=== PATIENT | female | born 1995 | race Two or more races ===

== ENCOUNTER 2022-11-25 14:17 | Outpatient (REF) | payer MEDICAID, SELFPAY ==
[2022-11-25 17:18] LABS: MANUAL DIFF FLAG NO
[2022-11-25 17:20] LABS: Basophils Percent Auto 0.5 % (0-2); Eosinophils Absolute Auto 0.5 X10*3/uL (0.0-0.4); Eosinophils Percent Auto 7.5 % (0-4); Hematocrit 35.9 % (37.0-47.0); Hemoglobin 11.3 g/dl (12.0-16.0); Imm Gran Abs Auto 0.02 X10*3/uL (0.00-0.03); Imm Gran Pct Auto 0.3 % (0.0-0.4); Lymphocytes Absolute Auto 1.9 X10*3/uL (1.2-4.9); Lymphocytes Percent Auto 28.2 % (20-40); Mean Corpuscular HGB Conc 31.5 g/dl (31.0-35.0); Mean Corpuscular Volume 76.4 fL (80.0-98.0); Mean Platelet Volume 9.9 fL (9.4-12.3); Monocytes Absolute Auto 0.5 X10*3/uL (0.1-1.2); Monocytes Percent Auto 6.9 % (2-11); Neutrophils Absolute Auto 3.8 x10*3/uL (2.0-8.3); Neutrophils Percent Auto 56.6 % (45-73); Platelet Count 285 X10*3/uL (160-400); Red Cell Distribution Width 15.4 % (11.0-16.0); White Blood Count 6.7 X10*3/uL (4.8-10.8)
[2022-11-25 17:38] LABS: Iron 37 mcg/dL (30-160); Percent Iron Saturation 11 % (15-50); Total Iron Binding Capacity 332 mcg/dL (228-428); Unsaturated Iron Binding 295 ug/dL
[2022-11-25 17:54] LABS: TSH reflex Free T4 0.89 uIU/mL (0.32-4.0)
== END 2022-11-25 14:18 | disposition home or self-care (01) ==
LOC: HO.CHCLDS 14:17
PROVIDERS: Visit Provider Pediatrics
DX: D50.0 Iron deficiency anemia secondary to blood loss (chronic) (principal)
CPT/HCPCS: 36415; 83540; 84443; 85025

== ENCOUNTER 2023-08-16 10:18 | Outpatient (REF) | payer MEDICAID, SELFPAY ==
[2023-08-16 14:42] LABS: MANUAL DIFF FLAG NO
[2023-08-16 15:02] LABS: Basophils Percent Auto 0.5 % (0-2); Eosinophils Absolute Auto 0.4 X10*3/uL (0.0-0.4); Eosinophils Percent Auto 6.9 % (0-4); Hematocrit 39.5 % (37.0-47.0); Hemoglobin 13.2 g/dl (12.0-16.0); Imm Gran Abs Auto 0.02 X10*3/uL (0.00-0.03); Imm Gran Pct Auto 0.3 % (0.0-0.4); Lymphocytes Absolute Auto 1.6 X10*3/uL (1.2-4.9); Lymphocytes Percent Auto 24.8 % (20-40); Mean Corpuscular HGB Conc 33.4 g/dl (31.0-35.0); Mean Corpuscular Hemoglobin 27.7 pg (27.0-33.0); Mean Platelet Volume 9.8 fL (9.4-12.3); Monocytes Absolute Auto 0.5 X10*3/uL (0.1-1.2); Neutrophils Absolute Auto 3.9 x10*3/uL (2.0-8.3); Neutrophils Percent Auto 60.5 % (45-73); Platelet Count 284 X10*3/uL (160-400); Red Blood Count 4.76 X10*6/uL (4.20-5.50); Red Cell Distribution Width 12.1 % (11.0-16.0); White Blood Count 6.4 X10*3/uL (4.8-10.8)
[2023-08-16 15:10] LABS: Estimated Average Glucose 94 mg/dL; Hemoglobin A1c % 4.9 % (<6.0)
[2023-08-16 15:27] LABS: Cholesterol 177 mg/dL (<200); HDL Cholesterol 45 mg/dL (>40); LDL Cholesterol Calculated 108 mg/dL (<100); Triglycerides 122 mg/dL (<150)
[2023-08-16 15:34] LABS: TSH reflex Free T4 1.52 uIU/mL (0.32-4.0); Vitamin D 25-OH Total 14.9 ng/mL (>30)
== END 2023-08-16 10:19 | disposition home or self-care (01) ==
LOC: HO.CHCLDS 10:18
PROVIDERS: Visit Provider Pediatrics
DX: Z00.00 Encounter for general adult medical examination without abnormal findings (principal); F41.9 Anxiety disorder, unspecified; D50.0 Iron deficiency anemia secondary to blood loss (chronic)
CPT/HCPCS: 36415; 80061; 82306; 83036; 84443; 85025

== ENCOUNTER 2024-09-26 15:57 | Outpatient (REF) | payer MEDICAID, SELFPAY ==
--- OUTSIDE RECORDS SUMMARY | 2024-09-26 16:01 | XMS_ITS | Clinical Summary ---
Author Organization [facility] Address [address] [place] [address] Care Team Providers Care Steel Molder Name Role Phone Unavailable Primary Care Provider Unavailabl e Source Comments PLEASE NOTE, if this patient is a minor, it may be UNLAWFUL to discuss sensitive information that is contained in these records (such as FAMILY PLANNING, MENTAL HEALTH or SUBSTANCE ABUSE) with the minor patient's parent or other person without the patient's specific authorization.[facility] Allergies Active Allergy Reactions Criticality Noted Date Comments Latex Rash Medium 12/27/2017 Medications XULANE 150-35 mcg/24 hr patch APPLY 1 PATCH TO SKIN Q WEEK 4 9 Active albuterol sulfate (PROAIR HFA) 90 mcg/actuation inhaler ProAir HFA 90 mcg/actuation aerosol inhaler Active LORazepam (ATIVAN) 0.5 mg tabletIndicatio ns:Feeling anxious Take 1 Tab by mouth as needed for anxiety 10 Tab 9 Active azithromycin (ZITHROMAX) 500 mg tabletIndicatio ns:Chlamydia Take 2 tabs PO as a single dose. Delete old prescription per pcp request 2 Tab 9 Active prenat.vits,alexia ,kcj-ekel-dmsgy ( VITAMIN) per tabletIndicatio ns:Missed period,Pregnanc y test positive ([facility]) Take 1 Tab by mouth once daily 90 Tab 3 0 Active Active Problems Problem Noted Date Diagnosed Date Asthma ([facility]) 12/27/2017 Vitiligo 12/27/2017 Abnormal Pap smear of cervix 12/27/2017 Overview (12/27/2017): Done on 09-01-17 - HSIL - plan to repeat colposcopy in 3rd trimester. Type AB blood, Rh positive 12/27/2017 Immunizations Immunization Administration Dates Next Due DTAP (Infanrix) 09/12/2001, 8,02/28/1997,12/18,1996 HEP B, PED/ADOL ([id number]-CVGH/RECOMBIVAX-PEDS) 01/09/2013,1996,1996 Hep A, Ped/adol, 2 Dose 01/09/2013,04/02/2010 Hep B, Adult/Adol ([id number]-K-GCISK/RECOMBIVAX-ADULT) 04/04/2018,03/02/2018,02/25/2012 Hep B, Unspecified 01/07/2016 Hpv, Unspecified 06/14/2008,02/13/2008, 8 INFLUENZA, SEASONAL, INJECTABLE 01/10/2014,01/05 IPV (IPOL) 09/12/2000, 7,1996,09/03 MENINGOCOCCAL MCV4, HISTORICAL 11/08/2013,2007 MMR (MMR II/Priorix) 04/04/2018,03/02/20 18,01/07/2016,02/24,09/12/2000,09/12/1997 MMRV, Live (Proquad) 04/04/2018(Deferred: Out of Stock) TDAP 12/12/2007 Varicella (Varivax), Live Vaccine 2018,03/02/2018,12/12/2007,11/10 Family History Medical History Relation Name Comments Anxiety disorder Mother Depression Mother Anxiety disorder Sister Depression Sister Relation Name Status Comments Mother Alive Sister Alive Social History Tobacco Use Types Packs/Day Years Used Date Smoking Tobacco: Never Smokeless Tobacco: Never Alcohol Use Standard Drinks/Week Comments No 0 (1 standard drink = 0.6 oz pur e alcohol) Social Connections Answer Date Recorded Connectedness 0 11/26/2023 Financial Resource Strain Answer Date R ecorded Financial Resource Strain 0 2018 Stress Answer Date Recorded Stress 0 11/13/2018 Physical Activity Answer Date Recorded Physical Activity 0 11/13/2018 Food Insecurity Answer Date Recorded Food 0 12/15/2023 Transportation Needs Answer Date Record ed Transportation 0 11/13/2018 Housing Stability Answer Date Recorded Housing 0 11/13/2018 Safety and Environment Answer Date Jeff rded Safety 0 12/27/2017 Utilities Answer Date Recorded Utilities 0 11/13/2018 Employment Answer Date Recorded Employment 0 11/13/2018 Comments No Sex and Gender Information Value Date Recorded Sex Assigned at Female 12/27/2017 6:46 AM PDT Legal Sex Female 7:10 AM PDT Gender Identity Female 12/27/2017 6:46 AM PDT Sexual Orientation Straight 12/27/2017 6: 46 AM PDT Occupation Industry Job Start Date Job End Date student Not on file Not on file Not on file Last Filed Vital Signs Vital Sign Reading Time Taken Comments Blood Pressure 110/61 09/18/2018 3:57 PM EDT Pulse 86 09/18/2018 3:57 PM EDT Temperature 36.6 C (97.9 F) 08/02/2018 2:51 PM EDT Respiratory Rate 16 09/18/2018 3:57 PM EDT Oxygen Saturation 99% 08/02/2018 2:51 PM EDT Inhaled Oxygen Concentration - - Weight 64 kg (141 lb) 09/18/2018 3:57 PM EDT Height 160 cm (5' 3 ) 12/27/2017 9:48 AM EDT Body Mass Index 24.98 12/27/2017 9:48 AM EDT Plan of Treatment Health Maintenance Due Date Last Done Comments Anxiety Screening 1996 HPV Screening 1996 Pap + HPV 1996 Tobacco Screening 1996 HIV Screening 06/18/2011 Imm-Pneumococcal (1 of 2 - PCV) 06/18/2015 Annual Wellness (Adult): Indicated (All Coverage) 12/27/2018 12/27/2017 Relationship Safety Screening/Counseling 12/27/2018 12/27/2017 Cervical Cancer Screening 04/11/2020 Pap Smear 04/11/2020 04/11/2017 Hypertension Screening (#1) 09/17/2021 [id number] ( season) 2023 Alcohol and Drug Screen 03/21/2024 12/27/2017 Depression Annual Screen 03/21/2024 12/27/2017 Imm-Influenza (#1) 2024 09/28/2017, 1 , 01/05/2013 Imm-DTaP/Tdap/Td (8 - Td or Tdap) 05/03/2027 05/03/2017, 12/12/2007, 09/12/2001, Additional history exists Hepatitis C Screening Completed 12/27/2017 Imm-Hepatitis B Completed 04/04/2018, 02/18, 01/07/2016, Additional history exists Imm-Varicella Completed 04/04/2018, 02/18, 12/12/2007, Additional history exists Cervical Ablation/Cold-Knife Conization Discontinued Cervical Cryotherapy Discontinued Colposcopy Discontinued Endometrial Biopsy Discontinued Excision/Leep Discontinued HPV Genotyping Discontinued Vaginal Pap Discontinued Vulvoscopy Discontinued Procedures Procedure Name Priority Date/Time Associated Diagnosis Comments HEPATITIS A,B,C PANEL Routine 12/27/2017 10:16 AM EDT Hepatitis B vaccination status unknown from Last 3 Months or Most Recently Relevant to Health Maintenance Results * (ABNORMAL) HEPATITIS A,B,C PANEL (12/27/2017 10:16 AM EDT) HEPATITIS B SURFACE ANTIBODY NEGATIVE NEGATIVE [facility] HEPATITIS B SURFACE ANTIGEN NEGATIVE NEGATIVE [facility] Comment: Over the counter supplements containing high doses of biotin may interfere with this assay. If interference is suspected, patients shoud be retested after refraining from biotin supplements for 72 hours. HEPATITIS C VIRUS DIAGNOSTIC NEGATIVE NEGATIVE [facility] HEPATITIS B CORE ANTIBODY NEGATIVE NEGATIVE [facility] HEPATITIS A ANTIBODY TOTAL POSITIVE(A) NEGATIVE [facility] Comment: Over the counter supplements containing high doses of biotin may interfere with this assay. If interference is suspected, patients shoud be retested after refraining from biotin supplements for 72 hours. Blood specimen (specimen) Blood / Unknown 12/27/2017 10:16 AM EDT 12/27/2017 11:52 AM EDT Narrative [facility] - 12/27/2017 2:08 PM EDT [employer] [address] [place] [address] PT ID [id number] ORD# [id number] [facility] - BLOOD DRAW Edited Result - Final Performing Organization Address City/State/[facility] Co de Phone Number [facility] [address] [place] [address], from Last 3 Months or Most Recently Relevant to Health Maintenance Insurance [id number] [facility] [facility]
--- OUTSIDE RECORDS SUMMARY | 2024-09-26 16:01 | XMS_ITS | Clinical Summary ---
Author Organization [place] [address] [address] [facility] Address [address] [place], [place] [address], [place] [address] Phone Care Team Providers Care Administrative Intern Name Role Phone Xenia Keene MD Primary Care Provider [phone] Allergies Active Allergy Reactions Criticality Noted Date Comments Latex Hives,Other,Itching, Swellin g High 01/11/2020 Trouble breathing Medications 25/iron fum/folic/dha (-1 ORAL) Take by mouth. Active acetaminophen (TYLENOL) 500 mg tablet Take 500 mg by mouth every 6 hours as needed. Active medroxyPROGESTER one 150 mg/mL injection Inject 1 mL into the muscle Every 3 Months. 12/21/2022 Active Active Problems Problem Noted Date Diagnosed Date Symptomatic anemia 06/25/2022 Overview (03/08/2024): Last Assessment & Plan: Bleeding now slowed significantly. Discussed recommendation for blood transfusion and to push PO fluids. She was counseled re: risk of transfusion including infection and other reactions, but unlikely. She will be given 1 units and if feeling better, will be monitored for 30 minutes and discharged to home with family. She will plan to start oral iron tonight. COVID-19 06/24/2020 Overview (03/08/2024): Exposure to partner who tested positive on 06/24/20 Pt is asymptomatic. Per pt she is getting tested 06/27/20 Anemia in 05/05/2020 Overview (03/08/2024): 05/05 starting iron 1xd Asthma 01/25/2020 Overview (03/08/2024): Using nebulizer a couple times a week, was using albuterol inhaler. Encounters Date Type Department Care Team Description 07/18/2024 2:15 PM EDT Office Visit Obstetrics and Gynecology - [facility] [address] [facility] [place] [address] Meggan Chang, Vaginal discharge (Primary Dx); Screen for STD (sexually transmitted disease); Bacterial vaginosis from Last 3 Months Immunizations Name Administration Dates Next Due Influenza Quadravalent, MDCK , 0.5ml, preservative free (Flucelvax) 6mo and older 02/19/2020 Tdap Tetanus diptheria acell ular pertussis (Boostrix; Adacel) 7yo and older 06/12/2020,04/17/2020 Typhoid Vaccine, Parenteral, Other Than Acetone-killed, Dried 10/01/2022,06/25/2022,09/29/2020 Surgical History Surgery Date Site/Laterality Comments OTHER SURGICAL HISTORY PROCEDURE: DENIES PREVIOUS SURGERY Medical History Medical History Date Comments History of asthma DX:History of asthma; COMMENT: asthma since childhood. has albuterol. Vitiligo DX:Vitiligo; COM MENT: all over body per pt. Anemia DX:Anemia Family History Medical History Relation Name Comments Cervical cancer Aunt maternal No Known Problems Brother paternal h halfway brother No Known Problems Father No Known Problems Maternal Grandfather Alzheimer's disease Maternal Grandmother Diabetes Maternal Grandmother Hypertension Maternal Grandmother No Known Problems Mother Breast cancer Other mat aunt pt's mother's paternal half sister No Known Problems Paternal Grandfather Diabetes Paternal Grandmother Asthma Sister 1 No Known Problems Sister 2 Asthma Sister 3 Ovarian cancer Neg Hx Uterine cancer Neg Hx Relation Name Status Comments Aunt maternal Brother Alive Father Alive Maternal Grandfather Alive Maternal Grandmother Alive Mother Alive Other mat aunt Alive Paternal Grandfather Alive Paternal Grandmother Alive Sister 1 Alive Sister 2 Alive Sister 3 Alive Social History Tobacco Use Types Packs/Day Years Used Date Smoking Tobacco: Never Smokeless Tobacco: Never Alcohol Use Standard Drinks/Week Comments Yes 0 (1 standard drink = 0.6 oz pur e alcohol) occas Comments No Sex and Gender Information Value Date Recorded Sex Assigned at Not on file Legal Sex Female 10:45 AM EST Gender Identity Not on file Sexual Orientation Not on file Obstetrics History Para Term AB IAB SAB Ectopic Multiple Livin g Live Births 5 2 2 3 2 1 2 2 Date Outcome GA Total Labor Labor/2nd/3rd Weight Sex Type Anes PTL Aide A1 A5 Name Clin SAB SAB 2017 Term 38w 1d 2827 g (99.7 oz) F Vag-Sp ont Epidur al Livin g Ravne et Colette DO Delivery Location:[facility] 0 IAB Surgic al Fco 2020 Term 39w 0d 0h 10m/0h 05m 3657 g (129 oz) M Vag-Sp ont Epidur al N Livin g 8 9 Conno r CNM Delivery Location:[facility] 2022 IAB Surgic al Fco Last Filed Vital Signs Vital Sign Reading Time Taken Comments Blood Pressure 118/70 07/18/2024 2:23 PM EDT Pulse 85 07/18/2024 2:23 PM EDT Temperature - - Respiratory Rate 18 07/18/2024 2:23 PM EDT Oxygen Saturation - - Inhaled Oxygen Concentration - - Weight 82.2 kg (181 lb 3.2 oz) 07/18/2024 2:23 P M EDT Height 157.5 cm (5' 2 ) 12/21/2022 4:24 PM EDT Body Mass Index 33.14 12/21/2022 4:24 PM EDT Plan of Treatment Health Maintenance Due Date Last Done Comments Hepatitis A Vaccines (2 of 2 - 2-dose series) 07/10/2013 01/09/2013 Pneumococcal Vaccine: Pediatrics (0 to 5 Years) and At-Risk Patients (6 to 49 Years) (1 of 2 - PCV) 06/18/2015 Social Influencers of Health Screening 02/22/2022 Cervical Cancer Screening: Pap Smear 02/18/2023 02/19/2020, 02/19/2020, 02/19/2020 COVID-19 Vaccine ( - season) 2023 Depression Screening 08/15/2024 08/16/2023 Influenza Vaccine (#1) 2024 3, 02/19/2020, 12/16/2017, Additional history exists DTaP,Tdap,and Td Vaccines (10 - Td or Tdap) 06/12/2030 06/12/2020, 04/17/2020, 12/16/2017, Additional history exists IPV Vaccines Completed 09/12/2000, 02/18, 1996, Additional history exists HPV Vaccines Completed 06/14/2008, 01/20, 12/12/2007 Meningococcal ACWY Vaccine Completed 11/08/2013, Hepatitis B Vaccines Completed 04/04/2018, 03/02/2018, 01/07/2016, Additional history exists MMR Vaccines Completed 04/04/2018, 02/18, 02/20/2018, Additional history exists Varicella Vaccines Completed 04/04/2018, 1 05/03/2017, 12/12/2007, Additional history exists HIV Screening Completed 12/21/2022 Hepatitis C Screening Completed 12/21/2022 HIB Vaccines Aged Out No longer eligi ble based on patient's age to complete this topic Meningococcal B Vaccine Aged Out No l onger eligible based on patient's age to complete this topic RSV Immunization Patients Under 20 months Aged Out No longer eligible based on patient's age to complete this topic Procedures Procedure Name Priority Date/Time Associated Diagnosis Comments TRICHOMONAS VAGINALIS ANTIGEN Routine 07/18/2024 2:44 PM EDT Screen for STD (sexually transmitted disease) Vaginal discharge CHLAMYDIA TRACHOMATIS AND NEISSERIA GONORRHOEAE PCR Routine 07/18/2024 2:44 PM EDT Screen for STD (sexually transmitted disease) Vaginal discharge HEPATITIS C SCREENING Routine 12/21/2022 HIV SCREENING Routine 12/21/2022 PAP SMEAR Routine 02/19/2020 from Last 3 Months or Most Recently Relevant to Health Maintenance Results * Trichomonas vaginalis antigen (07/18/2024 2:44 PM EDT) Trichomonas vaginalis Negative Negative 07/18/2024 8:[address] [facility] Swab Vaginal structure / Unknown Non-blood Collection / Unknown 07/18/2024 2:44 PM EDT 07/18/2024 2:44 PM EDT Meggan Charlene MILLAN LAB MICROBIOLOGY - GENERAL OR DERABLES Final Result [facility] [address] [place] [address], [place] [phone] * Chlamydia trachomatis and Neisseria gonorrhoeae molecular study (07/18/2024 2:44 PM EDT) Neisseria gonorrhoeae PCR Negative Negative LAB MOLECULAR DIAGNOSTICS METHOD 07/19/2024 2:[address] [facility] Chlamydia trachomatis PCR Negative Negative LAB MOLECULAR DIAGNOSTICS METHOD 07/19/2024 2:[address] [facility] Vaginal structure / Unknown 07/18/2024 2:44 PM EDT 07/18/2024 2:44 PM EDT Meggan Chang DO LAB MICROBIOLOGY - GENERAL OR DERABLES Final Result [facility] [address] [place] [address], [place] [phone] * HIV Screening (12/21/2022) HIV Screening abstracted us Historical Provider MD HEALTH MAINTENANCE Final Result * Hepatitis C Screening (12/21/2022) Hepatitis C Screening abstracted us Historical Provider MD HEALTH MAINTENANCE Final Result * Pap smear (02/19/2020) 02/19/2020 Narrative HISTORICAL TESTING LAB RESULTING AGENCY - 02/21/2020 1:11 PM EST [id number] THINPREP PAP, IMAGED: NEGATIVE FOR SQUAMOUS INTRAEPITHELIAL LESION AND MALIGNANCY . ANGELICA CM , JO-ANN(ASCP) (CASE ELECTRONICALLY SIGNED 02 21 2020) RESULT OF APTIMA HIGH RISK HPV ASSAY: HIGH RISK HPV: NEGATIVE (SEROTYPES 16,18,31,33,35,39,45,51,52,56,58,59,66,68) COMPLETED ON 2020-02-21 ADEQUACY: SATISFACTORY ENDOCERVICAL/TRANSFORMATION ZONE COMPONENT ABSENT. SOURCE: THINPREP PAP HPV ANY DX: REFLEX 16 AND 18, CERVICAL, IMAGED CLINICAL INFORMATION: HPV ANY DIAGNOSIS. , LMP 10/05/19 [Z12.4, Z34.81] us Cecilia Michelle [facility] CYTOLOGY ORDERABLES Ellyn conteh Result HISTORICAL TESTING LAB RESULTING AGENCY from Last 3 Months or Most Recently Relevant to Health Maintenance Insurance MEDICAID - [place] Care Teams Administrative Intern Relationship Specialty Start Date End Date Xenia Keene MD [address] [place] [address] PCP - General 01/08/20
--- OUTSIDE RECORDS SUMMARY | 2024-09-26 16:01 | XMS_ITS | Patient Health Record ---
Author Organization [facility] Address [address] [id number] Care Team Providers Care Bark Peeler Name Role Phone SHEA HENRIQUEZ Unavailable [phone] Allergies Allergen (clinical drug ingredient) Drug/Non Drug Allergy documented on EMR Reaction Allergy Type Onset Date Status Latex Latex Unknown Allergy Active Results Component Value Reference Range Notes Test, Urine Reviewed date:02/13/2024 12:19:42 PM Interpretation:Negative Performing Lab: Notes/Report: Negative Test, Urine neg Lot # [id number] Exp. Date 12/11/[address]/NG, Urine Reviewed date:02/20/2024 12:55:38 PM Interpretation:Negative Performing Lab:[facility], [facility] [employer] [place], [address] Toby Hoffman DO Notes/Report: GONORRHEA, AMPLIFIED NEGATIVE NEGATIVE CHLAMYDIA, AMPLIFIED NEGATIVE NEGATIVE DNA Test Results SEX: F : 1995 AGE: 28 [id number] CLINIC ID: [id number] SS: PHYSICIAN: SHEA HENRIQUEZ CNM COLLECTED BY: [id number] Specimen Source: Urine Specimen Type: Urine, Broderick PCR Medium Neisseria gonorrhoeae: NEGATIVE Normal Value: Negative Chlamydia trachomatis: NEGATIVE Normal Value: Negative Reason For Referral No Information Social History Sex Assigned At : Social History Observation Description Sex Assigned At Female Section Notes: Aptima/Bw Encounters Encounter Location Date Provider Diagnosis [facility] [address] [place] [id number] 02/13/2024 SHEA HENRIQUEZ Encounter for scre ening for infections with a predominantly sexual mode of transmission Z11.3 and Encounter for test, result negative Z32.02 Assessments Encounter Date Diagnosis (ICD Code) Assessment Notes Treatment Notes Treatment Clinical Notes Section Notes 02/13/2024 Encounter for screening for infections with a predominantly sexual mode of transmission (ICD-10 - Z11.3) 02/13/2024 Encounter for test, result negative (ICD-10 - Z32.02) 02/13/2024 Other Discussed options counseling, STI screening, family involvement, ectopic warnings, sexual coercion, reproductive life plan. Plan Of Treatment No Information Insurance Providers Payer Name Payer Address Payer Phone Subscriber Number Group Number Insured Name Patient Relationship to Insured Coverage Start Date Coverage End Date [place] ATT CLAIMS [address] [place] [id number] Radha Ellison Self - patient is the insured Medical (General) History Medical History History ICD Code Asthma
--- OUTSIDE RECORDS SUMMARY | 2024-09-26 16:01 | XMS_ITS | Clinical Summary ---
Author Organization [employer] Address [address] [facility] [address] [place] [address] Care Team Providers Care Planogrammer Name Role Phone Xenia Keene MD Primary Care Provider [phone] Allergies Active Allergy Reactions Criticality Noted Date Comments Latex Hives,Itching,Rash,S welling ,Shortness of breath High 12/27/2017 Trouble breathing Medications sertraline (Zoloft) 50 MG tabletIndicatio ns:Anxiety Take 1 tablet (50 mg) by mouth in the morning. 30 tablet 2 3 Active Multiple Vitamins-Minera ls (Multivitamin Gummies Womens) chewable tablet Take 1 tab orally and chew daily 90 tablet 3 3 Active medroxyPROGESTE Hood (Depo-Provera) 150 MG/ML suspension prefilled syringe injection syringe Inject 150 mg into the shoulder, thigh, or buttocks. 3 Active albuterol 108 (90 Base) MCG/ACT inhaler Inhale 2 puffs every 6 (six) hours if needed for wheezing. 18 g 2 3 Active fluticasone (Flovent) 110 MCG/ACT inhaler Inhale 1 puff in the morning and at bedtime. Rinse mouth with water after use to reduce aftertaste and incidence of candidiasis. Do not swallow. 12 g 11 3 Active sertraline (Zoloft) 50 MG tablet Take 1 tablet (50 mg) by mouth in the morning. 30 tablet 5 3 Active loratadine (Claritin) 10 MG tablet Take 1 tablet (10 mg) by mouth Once per day. 30 tablet 11 4 Active albuterol 108 (90 Base) MCG/ACT inhaler Inhale 2 puffs every 6 (six) hours if needed for wheezing. 18 g 2 4 Active ketoconazole (Nizoral) 2 % shampoo Apply topically 2 (two) times a week. 120 mL 11 4 Active clobetasol (Temovate) 0.05 % external solution Apply topically 2 times daily. 25 mL 1 4 Active ergocalciferol (Vitamin D2) 1.25 MG (59029 UT) capsule TAKE 1 TABSULE BY MOUTH ONCE A WEEK 12 capsule 4 Active Active Problems Problem Noted Date Diagnosed Date Uncontrolled mild persistent asthma 01/03/2020 Vitiligo 12/27/2017 Encounters Date Type Department Care Team Description 09/26/[address] [facility] [address] [place] [address] [phone] Xenia Keene MD TB Test from Last 3 Months Immunizations Immunization Administration Dates Next Due Influenza injectable quadriv alent IIV4 with preservative 11/25/2022 Social History Tobacco Use Types Packs/Day Years Used Date Smoking Tobacco: Never Passive Smoke Exposure: Never Smokeless Tobacco: Never Tobacco Cessation:Counseling Given: Not Answered Depression Answer Date Recorded Patient Health Questionnaire-9 Score 16 08/16/2023 Patient Health Questionnaire-9 Score 16 08/16/2023 Last PHQ-9: Questionnaire Data Not on file 0 08/16/2023 Housing Stability Answer Date Recorded What is your housing situation today? I have robert sargent 08/16/[address] you li ve. Do you have problems with any of the following? None of the above 08/16/2023 Food Insecurity Answer Date Recorded Within the past 12 months, y ou worried that your food would run out before you got money to buy more: Never True 08/16/2023 Within the past 12 months,th e food you bought just didn't last and you didn't have enough money to get more: Never True Transportation Answer Date Recorded In the past 12 months, has l ack of transportation kept you from medical appts, meetings, work or from getting things needed for daily living? No 08/16/2023 Utilities Answer Date Recorded In the past 12 months, has t he electric, gas, oil or water company threatened to shut off services in your home? No 08/16/2023 Depression Answer Date Recorded Patient Health Questionnaire-2 Score 2 08/16/2023 Comments No Sex and Gender Information Value Date Recorded Sex Assigned at Female 01/18/2022 10:37 AM EDT Legal Sex Female 10:37 AM EDT Gender Identity Female 01/18/2022 10:37 AM EDT Sexual Orientation Straight 01/18/2022 10 :37 AM EDT Last Filed Vital Signs Vital Sign Reading Time Taken Comments Blood Pressure 115/74 06/19/2024 11:53 AM EDT Pulse 70 06/19/2024 11:53 AM EDT Temperature 36.7 C (98 F) 06/19/2024 11:53 AM EDT Respiratory Rate 20 06/19/2024 11:53 AM EDT Oxygen Saturation 98% 06/19/2024 11:53 AM EDT Inhaled Oxygen Concentration - - Weight 82.1 kg (181 lb) 06/19/2024 11:53 AM EDT Height 162.6 cm (5' 4 ) 06/19/2024 11:53 AM EDT Body Mass Index 31.07 06/19/2024 11:53 AM EDT Plan of Treatment Health Maintenance Due Date Last Done Comments Disability Screening 1996 Alcohol/Substance Use Screening 2008 Family Planning (PISQ) 06/18/2011 Hepatitis C Screening 2014 Pneumococcal Vaccine: Pediatrics (0 to 5 Years) and At-Risk Patients (6 to 49) Years (1 of 2 - PCV) 06/18/2015 COVID-19 Vaccine ( season) 2023 12/19/2020, 11/26/2020 Depression Monitoring 02/16/2024 08/16/2023, 024 SDOH Screening 08/15/2024 08/16/2023 Influenza Vaccine (#1) 2024 , 02/19/2020, 01/10/2014, Additional history exists Pap Smear 02/18/2025 02/19/2020 Tobacco Screening 06/19/2025 06/19/2024 DTaP/Tdap/Td Vaccines (9 - Td or Tdap) 06/12/2030 06/12/2020, 04/17/2020, 12/12/2007, Additional history exists Zoster Vaccines (1 of 2) 2046 RSV Patients and Patients Aged 60 years or older (1 - 1-dose 75+ series) 06/18/2071 IPV Vaccines Completed 09/12/2000, 02/18, 1996, Additional history exists HPV Vaccines Completed 06/14/2008, 01/20, 12/12/2007 Hepatitis A Vaccines Completed 01/09/2013, 04/02/19 11 Meningococcal Vaccine Completed 11/08/2013, 008 Hepatitis B Vaccines Completed 04/04/2018, 03/02/2018, 01/07/2016, Additional history exists HIV Screening Completed 12/21/2022 HIB Vaccines Aged Out No longer eligi ble based on patient's age to complete this topic Meningococcal B Vaccine Aged Out No l onger eligible based on patient's age to complete this topic RSV under 20 months Aged Out No longe r eligible based on patient's age to complete this topic Rotavirus Vaccines Aged Out No longer eligible based on patient's age to complete this topic Procedures Procedure Name Priority Date/Time Associated Diagnosis Comments PAP/HPV Routine 02/19/2020 from Last 3 Months or Most Recently Relevant to Health Maintenance Results * Pap Smear (02/19/2020) Pap Negative for intraephithelial lesion or malignancy Negative for intraephithelial lesion or malignancy, Other HPV Not Detected Undetected, Indeterminate, Quantitative, Not Detected [facility] Provider HEALTH MAINTENANCE Final Result from Last 3 Months or Most Recently Relevant to Health Maintenance Insurance * Guarantor: Radha Ellison Account Type Relation to Patient Date of Phone Billing Address Personal/Family Self [address] [place] [address] [facility] Care Teams Planogrammer Relationship Specialty Start Date End Date Xenia Keene MD [address] [place] [phone] PCP - General Family Medicine 01/02/20 Sully Grant Cooling Pipe InspectorRestuarant Crew Worker 06/15/23
[2024-09-29 04:24] LABS: TS Negative Control Passed; TS Panel A 2; TS Panel B 1; TS Positive Control Passed; TSpotTB Negative (Negative)
== END 2024-09-26 15:58 | disposition home or self-care (01) ==
LOC: HO.CHCLDS 15:57
PROVIDERS: Visit Provider Pediatrics
DX: Z11.7 Encounter for testing for latent tuberculosis infection (principal); Z13.9 Encounter for screening, unspecified
CPT/HCPCS: 36415; 86481

== ENCOUNTER 2025-01-25 12:40 | Outpatient (REF) | payer MEDICAID, SELFPAY ==
--- OUTSIDE RECORDS SUMMARY | 2025-01-25 10:00 | XMS_ITS | Encounter Summary ---
Demographics Address [address] [place] [address] Work Phone Home Phone Mobile Phone Email Address Preferred Language en Marital Status Single Faith Affiliation Unknown Race Other Race Ethnic Group Unknown Author Organization [employer] Address [address] [facility] [address] [place] [address] Care Team Providers Care Draw Bench Operator Name Role Phone Xenia Keene MD Primary Care Provider [phone] Encounter Details Date Type Department Care Team ([facility] st Contact Info) Description 01/25/2025 10:00 AM EST Office Visit [facility] [address] [place] [address], [place] [phone] Xenia Keene MD [address] [place] [address] Vitiligo (Primary Dx); Encounter for immunization; Dietary counseling; Exercise counseling; Uncontrolled mild persistent asthma; Routine general medical examination at a health care facility Social History Tobacco Use Types Packs/Day Years Used Date Smoking Tobacco: Never Passive Smoke Exposure: Never Smokeless Tobacco: Never Depression Answer Date Recorded Patient Health Questionnaire-9 Score 11 01/25/2025 Patient Health Questionnaire-9 Score 11 01/25/2025 Last PHQ-9: Questionnaire Data Not on file 1 03/27/2024 Housing Stability Answer Date Recorded What is your housing situation today? I have robertneri sargent 01/25/[address] you li ve. Do you have problems with any of the following? None of the above 01/25/2025 Food Insecurity Answer Date Recorded Within the past 12 months, y ou worried that your food would run out before you got money to buy more: Never True 01/25/2025 Within the past 12 months,th e food you bought just didn't last and you didn't have enough money to get more: Never True 09/2024 Transportation Answer Date Recorded In the past 12 months, has l ack of transportation kept you from medical appts, meetings, work or from getting things needed for daily living? No 01/25/2025 Utilities Answer Date Recorded In the past 12 months, has t he electric, gas, oil or water company threatened to shut off services in your home? Yes 01/25/2025 Depression Answer Date Recorded Patient Health Questionnaire-2 Score 1 01/25/2025 Internet Access Answer Date Recorded Internet Access Q1 Yes 01/25/2025 Internet Access Q2 Not on file 01/25/2025 Comments No Sex and Gender Information Value Date Recorded Sex Assigned at Female 01/18/2022 10:37 AM EDT Legal Sex Female 10:37 AM EDT Gender Identity Female 01/18/2022 10:37 AM EDT Sexual Orientation Straight 01/18/2022 10 :37 AM EDT documented as of this encounter Last Filed Vital Signs Vital Sign Reading Time Taken Comments Blood Pressure 112/62 01/25/2025 10:12 AM EST Pulse 88 01/25/2025 10:12 AM EST Temperature 36.8 C (98.2 F) 01/25/2025 10:12 AM EST Respiratory Rate 20 01/25/2025 10:12 AM EST Oxygen Saturation - - Inhaled Oxygen Concentration - - Weight 76.7 kg (169 lb) 01/25/2025 10:12 AM EST Height 162.6 cm (5' 4 ) 01/25/2025 10:12 AM EST Body Mass Index 29.01 01/25/2025 10:12 AM EST documented in this encounter Functional Status * Over the past 2 weeks, how often have you been bothered by any of the following problems? Question Answer Date of Assessment Author Patient Health Questionnaire -2 Score 1 01/25/2025 10:15 AM EST Lupis Reese MA * Little interest or pleasure in doing things Answer Date of Assessment Author Several days 01/25/2025 10:15 AM EST Nancy Prince MA * Feeling down, depressed, or hopeless Answer Date of Assessment Author Not at all 01/25/2025 10:15 AM EST Nancy Prince MA * Trouble falling or staying asleep, or sleeping too much Answer Date of Assessment Author More than half the days 01/25/2025 10:15 AM Nancy Nieto MA * Feeling tired or having little energy Answer Date of Assessment Author Several days 01/25/2025 10:15 AM Nancy Dick MA * Poor appetite or overeating Answer Date of Assessment Author Several days 01/25/2025 10:15 AM Nancy Dick MA * Feeling bad about yourself - or that you are a failure or have let yourself or your family down Answer Date of Assessment Author Not at all 01/25/2025 10:15 AM Nancy Dick MA * Trouble concentrating on things, such as reading the newspaper or watching television Answer Date of Assessment Author Nearly every day 01/25/2025 10:15 AM Nancy Kraus MA * Moving or speaking so slowly that other people could have noticed? Or the opposite - being so fidgety or restless that you have been moving around a lot more than usual. Answer Date of Assessment Author Nearly every day 01/25/2025 10:15 AM Nancy Kraus MA * Thoughts that you would be better off or hurting yourself in some way Answer Date of Assessment Author Not at all 01/25/2025 10:15 AM Nancy Dick MA * Patient Health Questionnaire-9 Score Answer Date of Assessment Author 11 01/25/2025 10:15 AM Nancy Dick MA * Over the last 2 weeks, how often have you been bothered by any of the following problems? Question Answer Date of Assessment Author Feeling nervous, anxious, or on edge 1 01/25/2025 10:15 AM Lupis Nieto MA Not being able to stop or control worrying 1 01/25/2025 10:15 AM Lupis Neito MA Worrying too much about different things 2 01/25/2025 10:15 AM Lpuis Nieto MA Trouble relaxing 0 01/25/2025 10:15 AM Nancy Nieto MA Being so restless that it is hard to sit still 2 01/25/2025 10:15 AM Lupis Nieto MA Becoming easily annoyed or irritable 2 01/25/2025 10:15 AM Lupis Nieto MA Feeling afraid as if somethi ng awful might happen 2 01/25/2025 10:15 AM Lupis Nieto MA JUSTO-7 Total Score 10 01/25/2025 10:15 AM Nancy Nieto MA documented as of this encounter Plan of Treatment Scheduled Orders Name Type Priority Associated Diagnoses Order Schedule Pap Smear Pathology and Cytology Routine Routine general medical examination at a health care facility Ordered: 01/25/2025 Chlamydia/N. Gonorrhoeae RNA, TMA, Vaginal Microbiology Routine Routine general medical examination at a health care facility Ordered: 01/25/2025 Vitamin B12/Folate, Serum Panel Lab Routine Encounter for immunization Dietary counseling Exercise counseling Uncontrolled mild persistent asthma Vitiligo Routine general medical examination at a health care facility Expected: 01/25/2025, Expires: 01/25/2026 Vitamin D, 25-Hydroxy, Total, Immunoassay Lab Routine Encounter for immunization Dietary counseling Exercise counseling Uncontrolled mild persistent asthma Vitiligo Routine general medical examination at a health care facility Expected: 01/25/2025 (Approximate), Expires: 01/25/2026 Hepatic Function Panel Lab Routine Encounter for immunization Dietary counseling Exercise counseling Uncontrolled mild persistent asthma Vitiligo Routine general medical examination at a health care facility Expected: 01/25/2025 (Approximate), Expires: 01/25/2026 TSH W/Reflex to FT4 Lab Routine Encounter for immunization Dietary counseling Exercise counseling Uncontrolled mild persistent asthma Vitiligo Routine general medical examination at a health care facility Expected: 01/25/2025 (Approximate), Expires: 01/25/2026 HIV-1/2 Antigen and Antibodies, Fourth Generation, with Reflexes Lab Routine Encounter for immunization Dietary counseling Exercise counseling Uncontrolled mild persistent asthma Vitiligo Routine general medical examination at a health care facility Expected: 01/25/2025 (Approximate), Expires: 01/25/2026 Hepatitis C Antibody with Reflex to HCV, RNA, Quantitative, Real-Time PCR Lab Routine Encounter for immunization Dietary counseling Exercise counseling Uncontrolled mild persistent asthma Vitiligo Routine general medical examination at a health care facility Expected: 01/25/2025, Expires: 01/25/2026 Basic Metabolic Panel Lab Routine Encounter for immunization Dietary counseling Exercise counseling Uncontrolled mild persistent asthma Vitiligo Routine general medical examination at a health care facility Expected: 01/25/2025 (Approximate), Expires: 01/25/2026 CBC auto differential Lab Routine Encounter for immunization Dietary counseling Exercise counseling Uncontrolled mild persistent asthma Vitiligo Routine general medical examination at a health care facility Expected: 01/25/2025 (Approximate), Expires: 01/25/2026 documented as of this encounter Visit Diagnoses Diagnosis Vitiligo- Primary Encounter for immunization Dietary counseling Dietary surveillance and counseling Exercise counseling Uncontrolled mild persistent asthma Routine general medical examination at a health care facility documented in this encounter Additional Health Concerns Assessment Noted Time PHQ-9 Depression Total Score: 11 025 10:15 AM EST documented as of this encounter Care Teams Draw Bench Operator Relationship Specialty Start Date End Date Xenia Keene MD [address] [place] [id number] PCP - General Family Medicine 01/02/20 Sully Grant Helmet Hat Brim CutterLens Inspector 06/15/23 documented as of this encounter
--- OUTSIDE RECORDS SUMMARY | 2025-01-25 14:51 | XMS_ITS | Clinical Summary ---
Demographics Address [address] [facility] [address] [place] [address] Work Phone Home Phone Mobile Phone Email Address Preferred Language en Marital Status Single Protestant Affiliation Unknown Race Other Race Ethnic Group Unknown Author Organization [employer] Address [address] [facility] [address] [place] [address] Care Team Providers Care Business Analytics Manager Name Role Phone Xenia Keene MD Primary Care Provider Allergies Active Allergy Reactions Criticality Noted Date Comments Latex Hives,Itching,Rash,S welling ,Shortness of breath High 12/27/2017 Trouble breathing Medications Multiple Vitamins-Minera ls (Multivitamin Gummies Womens) chewable [...] for wheezing. 18 g 2 4 Active clobetasol (Temovate) 0.05 % external solution Apply topically 2 times daily. 25 mL 1 4 Active ergocalciferol (Vitamin D2) 1.25 MG (37721 UT) capsule TAKE 1 TABSULE BY MOUTH ONCE A WEEK 12 capsule 4 Active ketoconazole (NIZOral) 2 % shampoo APPLY TOPICALLY 2 TIMES A WEEK 120 mL 11 5 Active Active Problems Problem Noted Date Diagnosed Date Uncontrolled mild persistent asthma 01/03/2020 Vitiligo 12/27/2017 Encounters Date Type Department Care Team Description 01/25/2025 10:00 AM EST Office Visit [facility] [address] [place] [address] Xenia Keene MD Vitiligo (Primary Dx); Encounter for immunization; Dietary counseling; Exercise counseling; Uncontrolled mild persistent asthma; Routine general medical examination at a health care facility 01/25/2025 Travel 01/22/2025 Telephone [facility] [address] [place] [address] Xenia Keene MD Chart Prep 12/11/2024 Refill [facility] [address] [place] [address] Xenia Keene MD 11/30/2024 9:20 AM EDT Office Visit [facility] [address] [place] [address] [phone] Name, MD Yfn Right ear pain (Primary Dx) 11/30/2024 Travel from Last 3 Months Immunizations Immunization Administration Dates Next Due DTaP 09/12/2001, 8,02/28/1997,12/18,1996 HPV, Unspecified 06/14/2008,02/13/2008, 8 Hep A, ped/adol, 2 dose 01/09/2013,04/02/2010 Hep B, Adolescent or Pediatric 01/09/2013,1996,1996 Hep B, Unspecified 01/07/2016,02/25/2012 Hep B, adult 04/04/2018,03/02/2018,02/25/2012 IPV 09/12/2000, 7,1996,09/03 Influenza Injectable Quadriv alant Preservative Free IIV4 MDCK 02/19/2020 Influenza injectable quadriv alent IIV4 with preservative 11/25/2022 Influenza, IIV3, injectable 01/10/2014, 3 Influenza, seasonal, injecta ble, preservative free 01/25/2025 MMR 04/04/2018, 8,01/07/2016,02/24,09/12/2000,09/12/1997 Meningococcal MCV4, Unspecified 11/08/2013,12/11 PPD Test 06/22/2017 Tdap 06/12/2020,04/17/2020,12/12/2007 Typhoid, Parenteral 10/01/2022,06/25/2022,2020 Varicella 04/04/2018, 8,12/12/2007,11/10 Social History Tobacco Use Types Packs/Day Years [...] 20 01/25/2025 10:12 AM EST Oxygen Saturation 97% 11/30/2024 9:35 AM EDT Inhaled Oxygen Concentration - - Weight 76.7 kg (169 lb) 01/25/2025 10:12 AM EST Height 162.6 cm (5' 4 ) 01/25/2025 10:12 AM EST Body Mass Index 29.01 01/25/2025 10:12 AM EST Plan of Treatment Health Maintenance Due Date Last Done Comments Disability Screening 1996 Family Planning (PISQ) 06/18/2011 Hepatitis C Screening 2014 Pneumococcal Vaccine: Pediatrics (0 to 5 Years) and At-Risk Patients (6 to 49) Years (1 of 2 - PCV) 06/18/2015 COVID-19 Vaccine (3 - season) 2024 12/19/2020, 11/26/2020 Pap Smear 02/18/2025 02/19/2020 Depression Monitoring 07/25/2025 01/25/2025, 025 Alcohol/Substance Use Screening 01/25/2026 01/25/2025 SDOH Screening 01/25/2026 01/25/2025 Tobacco Screening 01/25/2026 01/25/2025 DTaP/Tdap/Td Vaccines (9 - Td or Tdap) [...] Additional history exists HIV Screening Completed 12/21/2022 Influenza Vaccine Completed 01/25/2025, , 11/25/2022, Additional history exists HIB Vaccines Aged Out No longer eligi [...] Not Detected Undetected, Indeterminate, Quantitative, Not Detected Historical Provider MD HEALTH MAINTENANCE Final Result from Last 3 Months or Most Recently Relevant to Health Maintenance Insurance * Guarantor: Radha Ellison Account Type Relation to Patient Date of Phone Billing Address Personal/Family Self [address] [facility] [place] [address] [place] [address] Care Teams Business Analytics Manager Relationship Specialty Start Date End Date Xenia Keene MD [address] [place] [phone] PCP - General Family Medicine 01/02/20 Sully Grant Base Ply HandVice President Integrated 06/15/23
--- OUTSIDE RECORDS SUMMARY | 2025-01-25 14:51 | XMS_ITS | Clinical Summary ---
Author Organization [facility] Address [address] [place] [address] Care Team Providers Care Exploration Engineer Name Role Phone WillowXenia pollack Primary Care Provider Unavailab le Allergies Active Allergy Reactions Severity Noted Date Comments Latex Hives/Urticaria,Rash /Dermatiti s,Itching/Pruritus,Swelling/Ed farideh High 01/11/2020 Trouble breathing Medications Medication Sig Dispensed Refills Start Date End Date Status MV-Min-Fe Fum-FA-DHA ( 1 OR) Take by mouth. 0 Active acetaminophen (TYLENOL) 500 MG tablet Take 500 mg by mouth every 6 hours as needed. 0 Active ferrous gluconate (FERGON) 324 (38 Fe) MG tablet Take 1 Tablet by mouth daily (with breakfast) for 360 days. 30 Tablet 11 06/25/2022 Active medroxyPROGESTERone (Depo-Provera) 150 MG/ML injectionIndications:En counter for surveillance of other contraceptive Inject 1 mL into the muscle Every 3 Months. 1 mL 1 12/21/2022 Active Active Problems Problem Noted Date Symptomatic anemia 06/25/2022 Last Assessment & Plan: Bleeding now slowed [...] to start oral iron tonight. COVID-19 06/24/2020 Overview: Exposure to partner who tested positive on 06/24/20 Pt is asymptomatic. Per pt she is getting tested 06/27/20 Anemia in 05/05/2020 Overview: 2/15 starting iron 1xd Asthma 01/25/2020 Overview: Using nebulizer a couple times a week, was using albuterol inhaler. Latex allergy 01/25/2020 Overview: Systemic Resolved Problems Problem Noted Date Resolved Date Supervision of other normal 01/25/2020 08/15/2020 Overview: 1. [facility] site: [address] 2. Delivery site: [facility] 3. Dating criteria: LMP confirmed by 1st trimester ultrasound 3. Blood type: AB+ 4. Genetic screening: Date: Result: 5. GBS: Date: 06/10 neg at [facility] triage 6. FOB name: Andrew Mae 7. Plans A. Epidural or other pain management - B. Labor support identified - C. Tdap - Date:, Flu - Date: D. Breast or Bottle feed: both breast and bottle E. Baby's name -Mariano (boy) F. Circumcision - yes 8. Hospital Course: admitted with SROM, progressed to with pitocin, Covid + on 07/04, well Zika assessment screening: negative Low-lying placenta - RESOLVED 01/17/2020 Overview: 02/27/2020- Normal anatomy scan. Posterior placenta. Immunizations Name Administration Dates Next Due Influenza Vaccine-preservati ve Free-quadrivalent 4 Years 02/19/2020 Tdap 06/12/2020,04/17/2020 Family History Medical History Relation Name Comments Cervical Cancer Aunt maternal No Known Problems Brother paternal h ruy brother No Known Problems Father No Known Problems Maternal Grandfather Alzheimers Disease Maternal Grandmother Diabetes Maternal Grandmother Hypertension Maternal Grandmother No Known Problems Mother CA Breast Other mat aunt pt's mother's p aternal half sister No Known Problems Paternal Grandfather Diabetes Paternal Grandmother Asthma Sister 1 No Known Problems Sister 2 Asthma Sister 3 CA Ovarian Negative Hx Uterine Cancer Negative Hx Relation Name Status Comments Aunt maternal Brother Alive Father Alive Maternal Grandfather Alive Maternal Grandmother Alive Mother Alive Other mat aunt Alive Paternal Grandfather Alive Paternal Grandmother Alive Sister 1 Alive Sister 2 Alive Sister 3 Alive Social History Tobacco Use Types Packs/Day Years Used Date Smoking Tobacco: Never Smokeless Tobacco: Never Tobacco Cessation:Counseling Given: Not Answered Alcohol Use Standard Drinks/Week Comments No 0 (1 standard drink = 0.6 oz pur e alcohol) rarely Alcohol Habits Answer Date Recorded How often do you have a drink containing alcohol ? Never 01/11/2020 How many drinks containing a lcohol do you have on a typical day when you are drinking? Not asked How often do you have six or more drinks on one occasion? Not asked Sex Assigned at Date Recorded Not on file Last Filed Vital Signs Vital Sign Reading Time Taken Comments Blood Pressure 118/66 12/21/2022 4:24 PM EDT Pulse 110 12/21/2022 4:24 PM EDT Temperature 36.9 C (98.4 F) 04/17/2020 10:05 AM EST Respiratory Rate 16 12/21/2022 4:24 PM EDT Oxygen Saturation - - Inhaled Oxygen Concentration - - Weight 75.3 kg (166 lb) 12/21/2022 4:24 PM EDT Height 157.5 cm (5' 2 ) 12/21/2022 4:24 PM EDT Body Mass Index 30.36 12/21/2022 4:24 PM EDT Plan of Treatment Health Maintenance Due Date Last Done Comments Covid-19 Vaccine (#1) 1996 BASELINE HEALTH EXAM 18-39 06/18/2015 PNEUMOCOCCAL VACCINE FOR HIG H RISK PATIENTS (#1) 06/18/2015 CHOLESTEROL SCREENING 2016 CERVICAL CANCER SCREENING 02/18/2023 02/19/2020 BMI CHECK/ADVISE 03/21/2024 06/25/2022, 02/19/2020 INFLUENZA (#1) 2024 02/19/2020 DTAP/TDAP/TD (9 - Td or Tdap) 06/12/2030, 04/17/2020, 12/12/2007, Additional history exists Care Teams Exploration Engineer Relationship Specialty Start Date End Date Xenia Keene PCP - General Family Practice 01/08/20
--- OUTSIDE RECORDS SUMMARY | 2025-01-25 14:51 | XMS_ITS | Encounter Summary ---
Author Organization [facility] Address [address] [place] [address] Care Team Providers Care Vp Medical Name Role Phone [facility], Pcp Primary Care Provider Xenia Urena Primary Care Provider Patricia clifford Encounter Details Date Type Department Care Team Description 01/03/2020 Intermediate Card Tender Report Medical Records [address] [place] [id number] Xenia Keene Social History Tobacco Use Types Packs/Day Years Used Date Smoking Tobacco: Never Assessed Alcohol Habits Answer Date Recorded How often do you have a drink containing alcohol ? Never 01/11/2020 How many drinks containing a lcohol do you have on a typical day when you are drinking? Not asked How often do you have six or more drinks on one occasion? Not asked Sex Assigned at Date Recorded Not on file documented as of this encounter Plan of Treatment Not on file documented as of this encounter Visit Diagnoses Not on filedocumented in this encounter Care Teams Vp Medical Relationship Specialty Start Date End Date [facility], Pcp PCP - General Internal Medicine 12/26/19 01/07/20 Xenia Keene PCP - General Family Practice 01/08/20 documented as of this encounter
--- OUTSIDE RECORDS SUMMARY | 2025-01-25 14:51 | XMS_ITS | Encounter Summary ---
Demographics Address [address] [place] [address] Work Phone Home Phone Mobile Phone Email Address [employer] Preferred Language en Marital Status Single Temple Affiliation Unknown Race Other Race Ethnic Group Unknown Author Organization [employer] Address [address] [facility] [address] [place] [address] Care Team Providers Care Marine Electrician Helper Name Role Phone Xenia Keene MD Primary Care Provider [phone] Encounter Details Date Type Department Care Team (Late st Contact Info) Description 09/07/2022 Abstract [employer] [facility] [address], [place] [id number] Xenia Keene MD [address] [place] [address] Social History Tobacco Use Types Packs/Day Years Used Date Smoking Tobacco: Never Passive Smoke Exposure: Never Smokeless Tobacco: Never Comments Unknown Sex and Gender Information Value Date Recorded Sex Assigned at Female 01/18/2022 10:37 AM EDT Legal Sex Female 10:37 AM EDT Gender Identity Female 01/18/2022 10:37 AM EDT Sexual Orientation Straight 01/18/2022 10 :37 AM EDT documented as of this encounter Plan of Treatment Not on file documented as of this encounter Visit Diagnoses Not on filedocumented in this encounter Additional Health Concerns Assessment Noted Time PHQ-9 Depression Total Score: 10 023 2:48 PM EST documented as of this encounter Care Teams Marine Electrician Helper Relationship Specialty Start Date End Date Xenia Keene MD [address] [place] [address] PCP - General Family Medicine 01/02/20 Sully Grant Toy AssemblerStreet Inspector 06/15/23 documented as of this encounter
--- OUTSIDE RECORDS SUMMARY | 2025-01-25 14:51 | XMS_ITS | Clinical Summary ---
Author Organization [facility] Address [address] [place] [address] Care Team Providers Care Book Sewer Name Role Phone Unavailable Primary Care Provider [...] pcp request 2 Tab 9 Active prenat.vits,alexia ,evs-ning-drdov ( VITAMIN) per tabletIndicatio ns:Missed period,Pregnanc y test positive Take 1 Tab by mouth once daily 90 Tab 3 0 Active Active Problems Problem Noted Date Diagnosed Date Asthma 12/27/2017 Vitiligo 12/27/2017 Abnormal Pap smear of cervix 12/27/2017 Overview (12/27/2017): Done on 09-01-17 - HSIL - plan to repeat colposcopy in 3rd trimester. Type AB blood, Rh positive 12/27/2017 Immunizations Immunization Administration Dates Next Due DTAP (Infanrix) 09/12/2001, 8,02/28/1997,12/18,1996 HEP B, PED/ADOL ([id number]/RECOMBIVAX-PEDS) 01/09/2013,1996,1996 Hep A, Ped/adol, 2 Dose 01/09/2013,04/02/2010 Hep B, Adult/Adol ([id number]-J-FSPUP/RECOMBIVAX-ADULT) 04/04/2018,03/02/2018,02/25/2012 Hep B, Unspecified 01/07/2016 Hpv, Unspecified [...] 12/27/2017 9:48 AM EDT Plan of Treatment Not on file Insurance C3 [facility] [employer] Member Subscriber Plan / Payer ( fective 2023-Present) Name:Radha Ellison Relation to Subscriber:Self Name:Radha Ellison Payer ID:[id number] Group ID:Not on file Type:Managed Medicaid Address: [place] [id number] [employer] Member Subscriber Plan / Payer (Ef fective 2023-Present) Name:Radha Ellison Relation to Subscriber:Self Name:Radha Ellison Payer ID:[id number] Group ID:Not on file Type:Managed Medicaid Address: [place] [id number]
--- OUTSIDE RECORDS SUMMARY | 2025-01-25 14:51 | XMS_ITS | Encounter Summary ---
Demographics Address [address] [place] [address] Work Phone Home Phone Mobile Phone Email Address Preferred Language en Marital Status Single Jain Affiliation Unknown Race Other Race Ethnic Group Unknown Author Organization [employer] Address [address] [place] [address] Care Team Providers Care Peanut Butter Maker Name Role Phone Xenia Keene MD Primary Care Provider [phone] Encounter Details Date Type Department Care Team (Latest Contact Info) Description 01/25/2025 Travel Social History Tobacco Use Types Packs/Day Years [...] AM EDT documented as of this encounter Functional Status * Over the past 2 weeks, how often have you been bothered by any of the following problems? Question Answer Date of Assessment Author Patient Health Questionnaire -2 Score 1 01/25/2025 10:15 AM Lupis Nieto [place] * Little interest or pleasure in [...] documented as of this encounter Care Teams Peanut Butter Maker Relationship Specialty Start Date End Date Xenia Keene MD [address] [facility] [place] [address] PCP - General Family Medicine 01/02/20 Sully Grant Vat CleanerFloral Arranger 06/15/23 documented as of this encounter
--- OUTSIDE RECORDS SUMMARY | 2025-01-25 14:51 | XMS_ITS | Encounter Summary ---
Demographics Address [address] [place] [address] Work Phone Home Phone Mobile Phone Email Address Preferred Language en Marital Status Single Sikhism Affiliation Unknown Race Other Race Ethnic Group Unknown Author Organization [employer] Address [address] [facility] [address] [place] [address] Care Team Providers Care Wet Milling Wheel Operator Name Role Phone Xenia Keene MD Primary Care Provider [phone] Reason for Visit * Reason Onset Date Comments Chart Prep 01/22/2025 Encounter Details Date Type Department Care Team (Late st Contact Info) Description 01/22/2025 Telephone [facility] [address] [place] [address] Xenia Keene MD [address] [place] [address] Chart Prep Social History Tobacco Use Types Packs/Day Years [...] AM EDT documented as of this encounter Miscellaneous Notes * Telephone Encounter - Nancy Reese [place] - 01/22/2025 4:20 PM EST Chart Prep Labs: not applicable Images: not applicable Referrals: complete Vaccines due: Covid, Flu, and PCV20 Screenings: pap smear, LMP, and PISQ Overdue care gaps: SBIRT, SDOH, PHQ-9, Oral health screening, Disability screen, and Tobacco documented in this encounter Plan of Treatment Not on file documented as of this encounter Visit Diagnoses Not on filedocumented in this encounter Additional Health Concerns Assessment Noted Time PHQ-9 Depression Total Score: 16 024 9:48 AM EDT documented as of this encounter Care Teams Wet Milling Wheel Operator Relationship Specialty Start Date End Date Xenia Keene MD [address] [place] [address] [place] [address] PCP - General Family Medicine 01/02/20 Sully Grant Metal SmelterHealthcare Manager 06/15/23 documented as of this encounter
--- OUTSIDE RECORDS SUMMARY | 2025-01-25 14:51 | XMS_ITS | Patient Health Record ---
Author Organization [facility] Address [address] [place] [address] Care Team Providers Care Steelworker Name Role Phone SHEA HENRIQUEZ Unavailable [phone] Allergies Allergen (clinical drug ingredient) Drug/Non Drug Allergy documented on EMR Reaction Allergy Type Onset Date Status Latex Latex Unknown Allergy Active Results Component Value Reference Range Flag Notes APTIMA COMBO 2 CT/NG, Urine Reviewed date:02/20/2024 12:55:38 PM Interpretation:Negative Performing Lab:[facility], [facility], [place], [address] Toby Hoffman DO Notes/Report: GONORRHEA, AMPLIFIED NEGATIVE NEGATIVE N CHLAMYDIA, AMPLIFIED NEGATIVE NEGATIVE N DNA Test Results SEX: F : 1995 AGE: 28 [id number] CLINIC ID: [id number] SS: PHYSICIAN: SHEA HENRIQUEZ [facility] COLLECTED BY: [id number] Specimen Source: Urine Specimen Type: Urine, Broderick PCR Medium Neisseria gonorrhoeae: NEGATIVE Normal Value: Negative Chlamydia trachomatis: NEGATIVE Normal Value: Negative Test, Urine Reviewed date:02/13/2024 12:19:42 PM Interpretation:Negative Performing Lab: Notes/Report: Negative Test, Urine neg Lot # [id number] Exp. Date 12/11/2024 Reason For Referral No Information Social History Sex Assigned At : Social History Observation Description Sex Assigned At Female Social History HIV Risk Assessment Social Info Question Answer Notes Additional Questions Is an HIV Risk Asse ssment being conducted? No Reproductive Life Plan: Social Info Question Answer Notes Reproductive Life Plan: Do you want to h ave children? Not sure Human Trafficking: Social Info Question Answer Notes Human Trafficking Experienced: No PrEP for HIV: Social Info Question Answer Notes PrEP for HIV Is the client intere sted in beginning/continuing PrEP for HIV? No Sexual History: Social Info Question Answer Notes Sexual History: Sexual History Reviewed: Partner s, Practices, Protection/Past STIs, Prevention of Currently sexually active? Yes Sexually active with: Men Number of male partners 1 Your sexual activities include: anal intercourse, oral intercourse, vaginal intercourse Reviewed types of EC? No Do you use condoms? No Date of last unprotected intercourse: 02/09/2024 Number of partners in past 3 months: 3 Number of partners in past year: 4 What is the client's primary method to prevent at the end of their visit? Withdrawal Does your partner(s) currently have any STIs? unsure Counseling Provided: Social Info Question Answer Notes Counseling Provided Please indicate the length of time, in minutes, that counseling was provided. 7 Counseling Was Provided By: eh Drugs/Alcohol: Social Info Question Answer Notes Drug/Alcohol Use Do you or have you used drugs? Yes, i n the past When you used, by which route did you take drugs? Smoking Which drug(s) did you smoke? Marijuana Do you or have you used alcohol? Yes, currently occasional use Food Access: Social Info Question Answer Notes Food Access The Client's current access to food is Secure Food Access Relationships: Social Info Question Answer Notes Relationships Has the client exper ienced any of the following: Client has never experienced harmful relationships Housing Social Info Question Answer Notes Housing The client's current living situation is: stable housing Tobacco Use: Social Info Question Answer Notes Tobacco Use: Do you/have you used tobacco? No Tobacco Smoking Status Former smoker Section Notes: Aptima/Bw Encounters Encounter Location Date Provider Diagnosis [address] [phone] 02/13/2024 SHEA HENRIQUEZ Encounter for scre ening [...] Insured Coverage Start Date Coverage End Date [place] ATT CLAIMS [address] [place] [id number] Radha Ellison Self - patient is the insured Medical (General) History Medical History History ICD Code Asthma
--- OUTSIDE RECORDS SUMMARY | 2025-01-25 14:51 | XMS_ITS | Encounter Summary ---
Author Organization [facility] Address [address] [place] [address] Care Team Providers Care Insurance Licensing Supervisor Name Role Phone Xenia Keene Primary Care Provider Unavailab le Reason for Visit * Reason Onset Date Comments Letter 02/01/2020 Encounter Details Date Type Department Care Team Description 02/01/2020 Telephone OBGYN - [address] [address] Kassy Capone CNM Letter Social History Tobacco Use Types Packs/Day Years [...] Assigned at Date Recorded Not on file COVID-19 Exposure Response Date Recorded In the last month, have you been in contact with someone who was confirmed or suspected to have Coronavirus / COVID-19? No / Unsure 01/25/2020 12:00 PM EST documented as of this encounter Miscellaneous Notes * Telephone Encounter - Dayan Velasco - 02/01/2020 4:22 PM EST Lm for patient - letter ready * Telephone Encounter - Laura Flores R.N. - 02/01/2020 4:07 PM EST Letter given. Please tell pt it is ready for pickup. * Telephone Encounter - Dayan Velasco - 02/01/2020 3:46 PM EST Chief Complaint/problem: Patient would like to pickers material handlers a signed letter stating she is - for transitional assistance - she said it needs to be signed by doctor How long has the patient had this problem? - Pt???s PENS AND PENCILS REPAIRER provider: Kassy Capone CNM Last menstrual period (LMP) or EDC (due date): N/A documented in this encounter Plan of Treatment Not on file documented as of this encounter Visit Diagnoses Not on filedocumented in this encounter Care Teams Insurance Licensing Supervisor Relationship Specialty Start Date End Date Xenia Keene PCP - General Family Practice 01/08/20 documented as of this encounter
[2025-01-25 16:05] LABS: CT PCR NOT DETECTED (Not Detect.); NG PCR NOT DETECTED (Not Detect.)
== END 2025-01-25 12:41 | disposition home or self-care (01) ==
LOC: HO.CHCLNP 12:40
PROVIDERS: Visit Provider Pediatrics
DX: Z00.00 Encounter for general adult medical examination without abnormal findings (principal); Z20.2 Contact with and (suspected) exposure to infections with a predominantly sexual mode of transmission
CPT/HCPCS: 87491; 87591

== ENCOUNTER 2025-01-28 13:15 | Outpatient (REF) | payer MEDICAID, SELFPAY | END 2025-01-28 13:16 | disposition home or self-care (01) | LOC: HO.LNP 13:15 | PROVIDERS: Visit Provider Pediatrics | DX: Z00.00 Encounter for general adult medical examination without abnormal findings (principal) | CPT/HCPCS: 88175 ==

== ENCOUNTER 2025-01-30 16:02 | Outpatient (REF) | payer MEDICAID, SELFPAY ==
--- OUTSIDE RECORDS SUMMARY | 2025-01-25 10:00 | XMS_ITS | Encounter Summary ---
Author Organization [employer] Address [address] [place] [address] 7 [place] [address] Care Team Providers Care Carton Folder Name Role Phone Xenia Keene MD Primary Care Provider Reason for Referral * Imaging (Urgent) - Authorized Specialty Diagnoses / Procedures Referred By Contkatya key Referred To Contact Radiology Diagnoses Pain of right breast Procedures BI US Breast Limited Right Xenia Keene MD [address] [place] [address] Phone: tel: fax: [address] Phone: tel: fax: Referral ID Status Reason Start Date Expiration Date V isits Requested Visits Authorized [id number] Authorized 01/28/2025 01/28/2026 1 1 Encounter Details Date Type Department Care Team (Late st Contact Info) Description 01/25/2025 10:00 AM EST Office Visit [facility] [address] [place] [address] Xenia Keene MD [address] [place], [place] [phone] Vitiligo (Primary Dx); Encounter for immunization; Dietary counseling; Exercise counseling; Uncontrolled mild persistent asthma; Routine general medical examination at a health care facility; Pain of right breast Social History Tobacco Use Types Packs/Day Years Used Date Smoking Tobacco: Never Passive Smoke Exposure: Never Smokeless Tobacco: Never Depression Answer Date Recorded Patient Health Questionnaire-9 Score 11 01/25/2025 Patient Health Questionnaire-9 Score 11 01/25/2025 Last PHQ-9: Questionnaire Data Not on file 1 03/27/2024 Housing Stability Answer Date Recorded What is your housing situation today? I have robert sargent 01/25/[address] you [...] 10:15 AM Nancy Dick MA * Feeling down, depressed, or hopeless Answer Date of Assessment Author Not at all 01/25/2025 10:15 AM Nancy Dick MA * Trouble falling or staying asleep, [...] control worrying 1 01/25/2025 10:15 AM Lupis Nieto MA Worrying too much about different things 2 01/25/2025 10:15 AM Lupis Nieto MA Trouble relaxing 0 01/25/2025 10:15 [...] Nieto MA documented as of this encounter Progress Notes * Xenia Keene MD - 01/25/2025 10:00 AM EST Subjective Patient ID: Radha Ellison is a 29 y.o. female who presents for for her PE visit. Radha Ellison, 29 years Right Breast Pain Experiencing sharp, burning pain in the right breast for the past week, worsened by lifting the armor changing sleeping position. Reports localized discomfort near the margin of the rib, with pain radiating outward. Denies nipple discharge and denies bleeding from the nipple. No palpable lump noted by self-exam, but describes sensation of a lump noticed approximately one to two years after the of her son in June 2020. Has not previously expressed concern or had the area formally evaluated. Denies recent trauma or injury to the area. No history of heavy lifting or direct impact reported. Gynecologic Symptoms Reports regular monthly periods. Last menstrual period was approximately two weeks prior to the encounter. History of vaginal delivery for both children, with perineal tears requiring stitches after her son's in June 2020. Occasional pain during intercourse, but denies bleeding with intercourse. History of abnormal Pap smear in the past, followed by colposcopy. No history of HPV infection reported. Psychiatric Medication Concerns Has not taken prescribed psychiatric medications for the past month due to dissatisfaction with theeffects of ADHD medication in combination with mood stabilizer (Lamictal). Reports preference for previous regimen of sertraline and ADHD medication, which provided better mood and symptom control. Expresses feeling muted on current regimen and concern about impact on parenting.Meds prescribed by her psychiatrist,sees therapist as well. Sleep Disturbance Reports difficulty falling asleep and staying asleep, often waking by 4 AM. Hair Loss Reports recent increase in hair loss. Vitiligo History of vitiligo since childhood, previously treated with phototherapy until age 11. Reports increased tingling and discomfort in areas of vitiligo during prolonged sun exposure, especially in summer. Review of Systems Constitutional: Negative for appetite change and fever. HENT: Negative for dental problem. Eyes: Negative for visual disturbance. Cardiovascular: Negative for leg swelling. Gastrointestinal: Negative for vomiting. Genitourinary: Negative for menstrual problem, pelvic pain, vaginal bleeding and vaginal discharge. Skin: Negative for rash. Psychiatric/Behavioral: Positive for behavioral problems, decreased concentration and sleep disturbance. Negative for self-injury and suicidal ideas. The patient is nervous/anxious. Objective BP 112/62 (BP Location: Left arm, Patient Position: Sitting, BP Cuff Size: Adult) Pulse88 Temp 98.2 ??F (36.8 ??C) (Oral) Resp 20 Ht 5' 4 (1.626 m) Wt 169 lb (76.7 kg) LMP 01/01/2025 (Exact Date) BMI 29.01 kg/m?? Physical Exam Vitals reviewed. Exam conducted with a drafter construction present. Constitutional: General: She is not in acute distress. Appearance: Normal appearance. She is normal weight. HENT: Head: Normocephalic. Nose: No congestion. Mouth/Throat: Mouth: Mucous membranes are moist. Pharynx: Oropharynx is clear. No oropharyngeal exudate. Eyes: Extraocular Movements: Extraocular movements intact. Conjunctiva/sclera: Conjunctivae normal. Pupils: Pupils are equal, round, and reactive to light. Cardiovascular: Rate and Rhythm: Normal rate and regular rhythm. Heart sounds: Normal heart sounds. No murmur heard. Pulmonary: Effort: Pulmonary effort is normal. Breath sounds: Normal breath sounds. No wheezing. Chest: Breasts: Fran Score is 5. Breasts are symmetrical. Right: Tenderness present. No bleeding, inverted nipple, nipple discharge or skin change. Left: No bleeding, inverted nipple, nipple discharge or skin change. Comments: 11 oclock point tenderness RUQ R breast Abdominal: General: Abdomen is flat. There is no distension. Palpations: Abdomen is soft. Tenderness: There is no abdominal tenderness. There is no guarding. Genitourinary: Pubic Area: No rash. Labia: Right: No rash or lesion. Left: No rash or lesion. Vagina: Vaginal discharge and erythema present. No tenderness, bleeding or lesions. Cervix: Discharge present. No cervical motion tenderness, friability or cervical bleeding. Uterus: Normal. Adnexa: Right adnexa normal and left adnexa normal. Right: No tenderness or fullness. Left: No tenderness or fullness. Musculoskeletal: Right lower leg: No edema. Left lower leg: No edema. Lymphadenopathy: Upper Body: Right upper body: No axillary adenopathy. Left upper body: No axillary adenopathy. Lower Body: No right inguinal adenopathy. No left inguinal adenopathy. Assessment/Plan Diagnoses and all orders for this visit: Vitiligo Continue good skin care, sees derm. - Vitamin B12/Folate, Serum Panel; Future - Vitamin D, 25-Hydroxy, Total, Immunoassay; Future - Hepatic Function Panel; Future - TSH W/Reflex to FT4; Future - HIV-1/2 Antigen and Antibodies, Fourth Generation, with Reflexes; Future - Hepatitis C Antibody with Reflex to HCV, RNA, Quantitative, Real-Time PCR; Future - Basic Metabolic Panel; Future - CBC auto differential; Future Encounter for immunization - FLU VACCINE TRIVALENT [id number] (Fluarix) 19 yrs + - Vitamin B12/Folate, Serum Panel; Future - Vitamin D, 25-Hydroxy, Total, Immunoassay; Future - Hepatic Function Panel; Future - TSH W/Reflex to FT4; Future - HIV-1/2 Antigen and Antibodies, Fourth Generation, with Reflexes; Future - Hepatitis C Antibody with Reflex to HCV, RNA, Quantitative, Real-Time PCR; Future - Basic Metabolic Panel; Future - CBC auto differential; Future Dietary counseling - Vitamin B12/Folate, Serum Panel; Future - Vitamin D, 25-Hydroxy, Total, Immunoassay; Future - Hepatic Function Panel; Future - TSH W/Reflex to FT4; Future - HIV-1/2 Antigen and Antibodies, Fourth Generation, with Reflexes; Future - Hepatitis C Antibody with Reflex to HCV, RNA, Quantitative, Real-Time PCR; Future - Basic Metabolic Panel; Future - CBC auto differential; Future Exercise counseling - Vitamin B12/Folate, Serum Panel; Future - Vitamin D, 25-Hydroxy, Total, Immunoassay; Future - Hepatic Function Panel; Future - TSH W/Reflex to FT4; Future - HIV-1/2 Antigen and Antibodies, Fourth Generation, with Reflexes; Future - Hepatitis C Antibody with Reflex to HCV, RNA, Quantitative, Real-Time PCR; Future - Basic Metabolic Panel; Future - CBC auto differential; Future Uncontrolled mild persistent asthma Flu vax recieved today, Contineu inhaler use. - Vitamin B12/Folate, Serum Panel; Future - Vitamin D, 25-Hydroxy, Total, Immunoassay; Future - Hepatic Function Panel; Future - TSH W/Reflex to FT4; Future - HIV-1/2 Antigen and Antibodies, Fourth Generation, with Reflexes; Future - Hepatitis C Antibody with Reflex to HCV, RNA, Quantitative, Real-Time PCR; Future - Basic Metabolic Panel; Future - CBC auto differential; Future Routine general medical examination at a health care facility - Pap Smear done today since she was due.Call with results. - Chlamydia/N. Gonorrhoeae RNA, TMA, Vaginal - Vitamin B12/Folate, Serum Panel; Future - Vitamin D, 25-Hydroxy, Total, Immunoassay; Future - Hepatic Function Panel; Future - TSH W/Reflex to FT4; Future - HIV-1/2 Antigen and Antibodies, Fourth Generation, with Reflexes; Future - Hepatitis C Antibody with Reflex to HCV, RNA, Quantitative, Real-Time PCR; Future - Basic Metabolic Panel; Future - CBC auto differential; Future Pain of right breast Imaging study ordered due to chronicity of symptoms. Advised not to miss. - BI US Breast Limited Right; Future documented in this encounter Plan of Treatment Scheduled Orders Name Type Priority Associated Diagnoses Orde r Schedule Pap Smear Pathology and Cytology Routine Routine general medical examination at a health care facility Ordered: 01/25/2025 Vitamin B12/Folate, Serum Panel Lab Routine Encounter for immunization Dietary counseling Exercise counseling Uncontrolled mild persistent asthma Vitiligo Routine general medical examination at a health care facility Expected: 01/25/2025, Expires: 01/25/2026 HIV-1/2 Antigen and Antibodies, Fourth [...] health care facility Expected: 01/25/2025, Expires: 01/25/2026 CBC auto differential Lab Routine Encounter for immunization Dietary counseling Exercise counseling Uncontrolled mild persistent asthma Vitiligo Routine general medical examination at a health care facility Expected: 01/25/2025 (Approximate), Expires: 01/25/2026 BI US Breast Limited Right Imaging Urgent Pain of right breast Expected: 01/28/2025, Expires: 01/28/2026 documented as of this encounter Procedures Procedure Name Priority Date/Time Associated Diagnosis Comments VITAMIN D,25-OH,TOTAL,IA Routine 01/30/2025 4:06 PM EST Encounter for immunization Dietary counseling Exercise counseling Uncontrolled mild persistent asthma Vitiligo Routine general medical examination at a health care facility TSH W/REFLEX TO FT4 Routine 01/30/2025 4 :06 PM EST Encounter for immunization Dietary counseling Exercise counseling Uncontrolled mild persistent asthma Vitiligo Routine general medical examination at a health care facility HEPATIC FUNCTION PANEL Routine 01/30/2025 4:06 PM EST Encounter for immunization Dietary counseling Exercise counseling Uncontrolled mild persistent asthma Vitiligo Routine general medical examination at a health care facility BASIC METABOLIC PANEL Routine 01/30/2025 4:06 PM EST Encounter for immunization Dietary counseling Exercise counseling Uncontrolled mild persistent asthma Vitiligo Routine general medical examination at a health care facility CHLAMYDIA/N. GONORRHOEAE RNA, TMA, UROGENITAL Routine 01/25/2025 10:30 AM EST Routine general medical examination at a health care facility documented in this encounter Results * (ABNORMAL) Basic Metabolic Panel (01/30/2025 4:06 PM EST) Sodium 142 135 - 145 mmol/L [facility] Potassium 3.9 3.3 - 5.1 mmol/L [facility] Chloride 110(H) 96 - 108 mmol/L [facility] Carbon Dioxide 24 22 - 29 mmol/L [facility] Anion Gap 12 12 - 20 [facility] Urea Nitrogen (BUN) 10 9 - 16 mg/dL [facility] Creatinine, Serum 0.77 0.5 - 1.4 mg/dL [facility] Estimated Glomerular Filt Rate >60 [facility] Comment:Chronic Kidney Disea se: Estimated GFR < 60 mL/min/[id number] Kidney Disease: Estimated GFR < 15 mL/min/1.73m2 Glucose 93 60 - 115 mg/dL [facility] Calcium 8.9 8.4 - 10.2 mg/dL [facility] Blood Venous blood specimen / Unknown 01/30/2025 4:06 PM EST 01/30/2025 5:55 PM EST Xenia Keene MD LAB BLOOD ORDERABLES Final Re sult [facility] [address] [place] [phone] * TSH W/Reflex to FT4 (01/30/2025 4:06 PM EST) TSH reflex Free T4 1.22 0.32 - 4.0 uIU/mL [facility] Blood Venous blood specimen / Unknown 01/30/2025 4:06 PM EST 01/30/2025 5:55 PM EST us Xenia Keene MD LAB BLOOD ORDERABLES Final Re sult Performing Organization Address City/[facility]/ZIP Co de Phone Number [facility] [address] [place] [phone] * Hepatic Function Panel (01/30/2025 4:06 PM EST) Bilirubin, Total 0.2 0.0 - 1.0 mg/dL [facility] Bilirubin, Direct <0.2 0.0 - 0.5 mg/dL [facility] Aspartate Amino Transferase 29 5 - 31 U/L [facility] Alanine Aminotransferase 14 0 - 31 U/L [facility] Total Protein 6.9 6.5 - 8.0 g/dL [facility] Albumin Level 4.4 3.5 - 5.0 g/dL [facility] Alkaline Phosphatase 57 39 - 117 U/L [facility] Blood Venous blood specimen / Unknown 01/30/2025 4:06 PM EST 01/30/2025 5:55 PM EST Xenia Keene MD LAB BLOOD ORDERABLES Final Re sult Performing Organization Address [facility] Co de Phone Number [facility] [address] [place] [address] [phone] * (ABNORMAL) Vitamin D, 25-Hydroxy, Total, Immunoassay (01/30/2025 4:06 PM EST) Vitamin D 25-OH Total 11.1(L) >30 ng/mL [facility] Comment: Health Based Reference Values*< 20 ng/mL Eozwnhmlw95-99 ng/mL Insufficient> 30 ng/mL Sufficient*Raul SCHERER. N Engl J Med. 2007;357:266-280There is no well-established upper level of normal vitamin Dlevels. Some laboratories use 50 ng/mL as an upper limit ofnormal. However, toxicity is patient-dependent and may occurat any level. Careful correlation with the patient'spresentation is necessary and, if there is concern forvitamin D toxicity, treatment should be consideredirrespective of the serum level.Care must be taken in interpreting Vitamin D results fromdifferent laboratories and methodologies. Published datademonstrated that results from patients undergoinghemodialysis may show a negative bias when tested withvarious automated 25-OH vitamin D assays when compared toLC-MS/MS.When testing samples from patients whose predominant form ofVitamin D is Vitamin D2, such as patients receiving VitaminD2 supplementation, results that are subtherapeutic shouldbe confirmed with another method such as LC-MS/MS. Blood Venous blood specimen / Unknown 01/30/2025 4:06 PM EST 01/30/2025 5:55 PM EST us Xenia Keene MD LAB BLOOD ORDERABLES Final Re sult [facility] [address] [place] [phone] * Chlamydia/N. Gonorrhoeae RNA, TMA, Vaginal (01/25/2025 10:30 AM EST) CT PCR NOT DETECTED Not Detect. [facility] Comment:A not detected test result does not exclude the possibilityof infection because test results can be affected byimproper specimen collection, concurrent antibiotic therapy,or the number of organisms in the specimen which may bebelow the sensitivity of the test. As with many diagnostictests, results from the Xpert CT/NG assay should beinterpreted in conjunction with other laboratory andclinical data available to the clinician.Xpert CT/NG performance has not been evaluated in patientsless than 14 years of age. The assay should not be used forthe evaluationof suspected sexual abuse or for other medico-legalindications. Additional testing is recommended in anycircumstance when false positive or false negative resultscould lead to adverse medical, social or psychologicalconsequences. NG PCR NOT DETECTED Not Detect. [facility] Comment:A not detected test result does not exclude the possibilityof infection because test results can be affected byimproper specimen collection, concurrent antibiotic therapy,or the number of organisms in the specimen which may bebelow the sensitivity of the test. As with many diagnostictests, results from the Xpert CT/NG assay should beinterpreted in conjunction with other laboratory andclinical data available to the clinician.Xpert CT/NG performance has not been evaluated in patientsless than 14 years of age. The assay should not be used forthe evaluationof suspected sexual abuse or for other medico-legalindications. Additional testing is recommended in anycircumstance when false positive or false negative resultscould lead to adverse medical, social or psychologicalconsequences. Swab Cervical swab / Unknown 01/25/2025 10:30 AM EST 01/25/2025 2:27 PM EST us Xenia Keene MD LAB MICROBIOLOGY - GENERAL OR DERABLES Final Result [facility] [address] [place] [phone] documented in this encounter Visit Diagnoses Diagnosis Vitiligo- Primary Encounter for immunization Dietary counseling Dietary surveillance and counseling Exercise counseling Uncontrolled mild persistent asthma Routine general medical examination at a health care facility Pain of right breast documented in this encounter Additional Health Concerns Assessment Noted Time PHQ-9 Depression Total Score: 11 025 10:15 AM EST documented as of this encounter Care Teams Carton Folder Relationship Specialty Start Date End Date Xenia Keene MD [address] [place] [phone] PCP - General Family Medicine 01/02/20 Sully Grant Grinder Set Up Operator [employer] 06/15/23 documented as of this encounter
--- OUTSIDE RECORDS SUMMARY | 2025-01-30 15:00 | XMS_ITS | Encounter Summary ---
Demographics Address [address] [place] [address] Work Phone Home Phone Mobile Phone Email Address Preferred Language en Marital Status Single Zoroastrian Affiliation Unknown Race Other Race Ethnic Group Unknown Author Organization [employer] Address [address] [place] [address] Care Team Providers Care Workday Consultant Name Role Phone Xenia Keene MD Primary Care Provider [phone] Encounter Details Date Type Department Care Team (Late st Contact Info) Description 01/30/2025 3:00 PM EST Office Visit [facility] [address] [place], [place] [phone] Hiral Jett NP [address] [place] [address] Acute cough; Shortness of breath Social History [...] needed This note was drafted using Ambient (Reading Room) technology. The patient/patient's guardian has been informed [...] PM EST) Influenza A Indeterminate Negative, Indeterminate [facility] Swab 01/30/2025 4:05 PM EST us Hiral Dyerm SENIOR ENGINEERING MANAGER POINT OF CARE TEST ENTER/EDIT O RDERABLES Final Result Performing Organization Address City/[facility]/ZIP Co de Phone Number [facility] [address] [place] [address] [phone] * POCT Rapid Influenza B WARREN ID NOW (01/30/2025 4:05 PM EST) Influenza B Indeterminate Negative, Indeterminate [facility] Swab 01/30/2025 4:05 PM EST us Hiral Dyerm SENIOR ENGINEERING MANAGER POINT OF CARE TEST ENTER/EDIT O RDERABLES Final Result Performing Organization Address City/[facility]/ZIP Co de Phone Number [facility] [address] [place] [address] [phone] * POCT Rapid Covid-19 BinaxNOW (01/30/2025 3:31 PM EST) Rapid COVID Ag Negative Swab 01/30/2025 3:31 PM EST us Hiral Dyerm SENIOR ENGINEERING MANAGER POINT OF CARE TEST ENTER/EDIT O RDERABLES Final Result documented in this encounter Visit Diagnoses Diagnosis Acute cough Shortness of breath documented in this encounter Additional Health Concerns Assessment Noted Time PHQ-9 Depression Total Score: 11 025 10:15 AM EST documented as of this encounter Care Teams Workday Consultant Relationship Specialty Start Date End Date Xenia Keene MD [address] [place] [phone] PCP - General Family Medicine 01/02/20 Sully Grant Kier HandCook Fruit 06/15/23 documented as of this encounter
[2025-01-30 18:03] LABS: MANUAL DIFF FLAG NO
[2025-01-30 18:27] LABS: Alanine Aminotransferase 14 U/L (0-31); Albumin Level 4.4 g/dL (3.5-5.0); Alkaline Phosphatase 57 U/L (39-117); Anion Gap 12 (12-20); Aspartate Amino Transferase 29 U/L (5-31); Blood Urea Nitrogen 10 mg/dL (9-16); Calcium 8.9 mg/dL (8.4-10.2); Carbon Dioxide 24 mmol/L (22-29); Chloride 110 mmol/L (96-108); Estimated Glomerular Filt Rate > 60; Potassium 3.9 mmol/L (3.3-5.1); Sodium 142 mmol/L (135-145); Total Protein 6.9 g/dL (6.5-8.0)
[2025-01-30 18:55] LABS: Folate 9.5 ng/mL (> or = 4.0); Vitamin B12 527 pg/mL (200-900)
--- OUTSIDE RECORDS SUMMARY | 2025-01-30 18:55 | XMS_ITS | Encounter Summary ---
Demographics Address [address] [place] [address] Work Phone Home Phone Mobile Phone Email Address Preferred Language en Marital Status Single Confucianist Affiliation Unknown Race Other Race Ethnic Group Unknown Author Organization [employer] Address [address] [place] [address] Care Team Providers Care Computer Technology Teacher Name Role Phone Xenia Keene MD Primary Care Provider [phone] Reason for Visit * Reason Onset Date Comments In person triage 01/30/2025 Encounter Details Date Type Department Care Team (Late st Contact Info) Description 01/30/2025 Telephone [facility] [address] [place] [address] Xenia Keene MD [address] [place] [address] In person triage Social History Tobacco Use Types Packs/Day Years [...] encounter Miscellaneous Notes * Telephone Encounter - Dara Hale RN - 01/30/2025 2:59 PM EST Assessment: Patient presents to Walk- In Center c/o shortness of breath., dry cough, headachd, Symptoms have been present for 3 days. Symptoms are constant. Symptoms worsen with ambulation.. Patient is taking (treatment/meds) albuterol pump and nebulizer treatment with little effect. VS as follows (if applicable): Temp 97.2 orally HR 73 Resp 16 none BP 121/85 left Arm; Device: Automatic Cuff Size: regular O2 sat 100 % on room air Hgt 5 3 Wgt 172 Lung sounds (if applicable) no wheezes or crackles, Location: bilateral Plan of care: Report to Ariadna Jett Provider evaluation: Patient to return to waiting room to await Provider evaluation in the order of arrival Dara Hale RN documented in this encounter Plan of Treatment Not on file documented as of this encounter Visit Diagnoses Not on filedocumented in this encounter Additional Health Concerns Assessment Noted Time PHQ-9 Depression Total Score: 11 025 10:15 AM EST documented as of this encounter Care Teams Computer Technology Teacher Relationship Specialty Start Date End Date Xenia Keene MD [address] [place] [phone] PCP - General Family Medicine 01/02/20 Sully Grant Paper Products SupervisorIon Implant Machine Operator 06/15/23 documented as of this encounter
--- OUTSIDE RECORDS SUMMARY | 2025-01-30 18:55 | XMS_ITS | Encounter Summary ---
Demographics Address [address] [place] [address] Work Phone Home Phone Mobile Phone Email Address Preferred Language en Marital Status Single Gnosticist Affiliation Unknown Race Other Race Ethnic Group Unknown Author Organization [employer] Address [address] [facility] [address] [place] [address] Care Team Providers Care Underground Truck Operator Name Role Phone Xenia Keene MD Primary Care Provider [phone] Encounter Details Date Type Department Care Team (Late st Contact Info) Description 09/07/2022 Abstract [place] [employer] [address] [place], [place] [phone] Xenia Keene MD [address] [place] [address] Social History Tobacco Use Types Packs/Day Years [...] documented as of this encounter Care Teams Underground Truck Operator Relationship Specialty Start Date End Date Xenia Keene MD [address] [place] [address] PCP - General Family Medicine 01/02/20 Sully Grant Arc Cutter Plasma ArcCad Cam Programmer 06/15/23 documented as of this encounter
--- OUTSIDE RECORDS SUMMARY | 2025-01-30 18:55 | XMS_ITS | Encounter Summary ---
Demographics Address [address] [place] [address] Work Phone Home Phone Mobile Phone Email Address Preferred Language en Marital Status Single Mormon Affiliation Unknown Race Other Race Ethnic Group Unknown Author Organization [employer] Address [address] [place] [address] Care Team Providers Care Gel Coat Sprayer Name Role Phone Xenia Keene MD Primary Care Provider [phone] Encounter Details Date Type Department Care Team [...] documented as of this encounter Care Teams Gel Coat Sprayer Relationship Specialty Start Date End Date Xenia Keene MD [address] [facility] [address] PCP - General Family Medicine 01/02/20 Sully Grant Warehouse Shipping SupervisorEngraver Steel Plate 06/15/23 documented as of this encounter
--- OUTSIDE RECORDS SUMMARY | 2025-01-30 18:55 | XMS_ITS | Encounter Summary ---
Demographics Address [address] [place] [address] Work Phone Home Phone Mobile Phone Email Address .[employer] Preferred Language en Marital Status Single Holiness Affiliation Unknown Race Other Race Ethnic Group Unknown Author Organization [employer] Address [address] [place] [address] Care Team Providers Care Press Setup Operator Name Role Phone Xenia Keene MD Primary Care Provider [phone] Encounter Details Date Type Department Care Team (Latest Contact Info) Description 01/30/2025 Travel Social History Tobacco Use Types Packs/Day [...] documented as of this encounter Care Teams Press Setup Operator Relationship Specialty Start Date End Date Xenia Keene MD [address] [place] [phone] PCP - General Family Medicine 01/02/20 Sully Grant Candy MakerFinancial Project Manager 06/15/23 documented as of this encounter
--- OUTSIDE RECORDS SUMMARY | 2025-01-30 18:55 | XMS_ITS | Clinical Summary ---
Author Organization [employer] Address [address] [facility] 7t [place] [address] Care Team Providers Care International Trade Manager Name Role Phone Xenia Keene MD Primary Care Provider [phone] Allergies Active Allergy Reactions Criticality Noted Date Comments Latex Hives,Itching,Rash,S welling ,Shortness of breath High 12/27/2017 Trouble breathing Medications Multiple Vitamins-Bosque als (Multivitamin Gummies Womens) chewable tablet Take 1 tab orally and chew daily 90 tablet 3 11/26/19 23 Active medroxyPROGEST ERone (Depo-Provera) 150 MG/ML suspension prefilled syringe injection syringe Inject 150 mg into the shoulder, thigh, or buttocks. 12/22/19 23 Active albuterol 108 (90 Base) MCG/ACT inhaler Inhale 2 puffs every 6 (six) hours if needed for wheezing. 18 g 2 12/23/19 23 Active sertraline (Zoloft) 50 MG tablet Take 1 tablet (50 mg) by mouth in the morning. 30 tablet 5 12/23/19 23 Active loratadine (Claritin) 10 MG tablet Take 1 tablet (10 mg) by mouth Once per day. 30 tablet 11 08/16/19 24 Active albuterol 108 (90 Base) MCG/ACT inhaler Inhale 2 puffs every 6 (six) hours if needed for wheezing. 18 g 2 08/16/19 24 Active clobetasol (Temovate) 0.05 % external solution Apply topically 2 times daily. 25 mL 1 08/16/19 24 Active ergocalciferol (Vitamin D2) 1.25 MG (42758 UT) capsule TAKE 1 TABSULE BY MOUTH ONCE A WEEK 12 capsule 11/18/19 24 Active ketoconazole (NIZOral) 2 % shampoo APPLY TOPICALLY 2 TIMES A WEEK 120 mL 11 12/13/19 25 Active budesonide-for moterol (Symbicort) 160-4.5 MCG/ACT inhalerIndicat ions:Shortness of breath Inhale 2 puffs every 4 (four) hours if needed (chest tightness). Rinse mouth with water after use to reduce aftertaste and incidence of candidiasis. Do not swallow. 1 each 1 01/31/20 25 025 Active fluticasone (Flovent) 110 MCG/ACT inhaler Inhale 1 puff in the morning and at bedtime. Rinse mouth with water after use to reduce aftertaste and incidence of candidiasis. Do not swallow. 12 g 11 12/23/19 23 025 Discontinued(Me d list cleanup (will not trigger notification to Pharmacy)) Active Problems Problem Noted Date Diagnosed Date Uncontrolled mild persistent asthma 01/03/2020 Vitiligo 12/27/2017 Encounters Date Type Department Care Team Description 01/30/2025 3:00 PM EST Office Visit [facility] [address] [place] [phone] Hiral Jett NP Acute cough; Shortness of breath 01/30/2025 Telephone [facility] [address] [place] [address] Xenia Keene MD In person triage 01/30/2025 Travel 01/25/2025 10:00 AM EST Office Visit [facility] [address] [place] [address] Xenia Keene MD Vitiligo (Primary Dx); Encounter for immunization; Dietary counseling; Exercise counseling; Uncontrolled mild persistent asthma; Routine general medical examination at a health care facility; Pain of right breast 01/25/2025 Travel 01/22/2025 Telephone [facility] [address] [place] [address] Xenia Keene MD Chart Prep 12/11/2024 Refill [facility] [address] [place] [address] Xenia Keene MD 11/30/2024 9:20 AM EDT Office Visit [facility] [address] [place] [address] Name, MD Yfn Right ear pain (Primary [...] oz) 01/30/2025 2:58 P M EST Height 162.6 cm (5' 4 ) 01/25/2025 10:12 AM EST Body Mass Index 29.59 01/25/2025 10:12 AM EST Plan of Treatment [...] Procedure Name Priority Date/Time Associated Diagnosis Comments BASIC METABOLIC PANEL Routine 01/30/2025 4:06 PM [...] medical examination at a health care facility VITAMIN D,25-OH,TOTAL,IA Routine 01/30/2025 4:06 PM EST Encounter for immunization Dietary counseling Exercise counseling Uncontrolled mild persistent asthma Vitiligo Routine general medical examination at a health care facility POCT INFLUENZA A (ID NOW RAPID MOLECULAR) Routine 01/30/2025 4:05 PM EST Acute cough Shortness of breath POCT INFLUENZA B (ID NOW RAPID MOLECULAR) Routine 01/30/2025 4:05 PM EST Acute cough Shortness of breath POCT RAPID COVID ANTIGEN Routine 01/30/2025 3:31 PM EST Acute cough Shortness of breath CHLAMYDIA/N. GONORRHOEAE RNA, TMA, UROGENITAL Routine 01/25/2025 10:30 AM EST Routine general medical examination at a health care facility HM PAP/HPV Routine 02/19/2020 from Last 3 Months or Most Recently Relevant to Health Maintenance Results * (ABNORMAL) Vitamin D, 25-Hydroxy, Total, Immunoassay (01/30/2025 4:06 PM EST) Vitamin D 25-OH Total 11.1(L) >30 ng/mL [facility] Comment: Health Based Reference Values*< 20 ng/mL [id number] ng/mL Insufficient> 30 ng/mL Sufficient*Raul SCHERER. N [...] ORDERABLES Final Re sult Performing Organization Address [facility]/ZIP Co de Phone Number [facility] [address] [place] [phone] * TSH W/Reflex to FT4 (01/30/2025 4:06 PM EST) TSH reflex Free T4 1.22 0.32 - 4.0 uIU/mL [facility] Blood Venous blood specimen / Unknown 01/30/2025 4:06 PM EST 01/30/2025 5:55 PM EST Xenia Keene MD LAB BLOOD ORDERABLES Final Re sult Performing Organization Address City/[facility]/ZIP Co de Phone Number [facility] [address] [place] [phone] * Hepatic Function Panel (01/30/2025 4:06 PM EST) Bilirubin, Total 0.2 0.0 - 1.0 mg/dL [facility] Bilirubin, Direct <0.2 0.0 - 0.5 mg/dL [facility] Aspartate Amino Transferase 29 5 - 31 U/L [facility] Alanine Aminotransferase 14 0 - 31 U/L [facility] Total Protein 6.9 6.5 - 8.0 g/dL [facility] Albumin Level 4.4 3.5 - 5.0 g/dL [facility] Alkaline Phosphatase 57 39 - 117 U/L [facility] Blood Venous blood specimen / Unknown 01/30/2025 4:06 PM EST 01/30/2025 5:55 PM EST us Xenia Keene MD LAB BLOOD ORDERABLES Final Re sult [facility] [address] [place] [address] [phone] * (ABNORMAL) Basic Metabolic Panel (01/30/2025 4:06 PM EST) Pathologist [facility] Sodium 142 135 - 145 mmol/L [facility] Potassium 3.9 3.3 - 5.1 mmol/L [facility] Chloride 110(H) 96 - 108 mmol/L [facility] Carbon Dioxide 24 22 - 29 mmol/L [facility] Anion Gap 12 12 - 20 [facility] Urea Nitrogen (BUN) 10 9 - 16 mg/dL [facility] Creatinine, Serum 0.77 0.5 - 1.4 mg/dL [facility] Estimated Glomerular Filt Rate >60 [facility] Comment:Chronic Kidney Disea se: Estimated GFR < 60 mL/min/1.98m0Lwiycz Kidney Disease: Estimated GFR < 15 mL/min/1.73m2 Glucose 93 60 - 115 mg/dL [facility] Calcium 8.9 8.4 - 10.2 mg/dL [facility] Blood Venous blood specimen / Unknown 01/30/2025 4:06 PM EST 01/30/2025 5:55 PM EST Xenia Keene MD LAB BLOOD ORDERABLES Final Re sult Performing Organization Address [facility] Co de Phone Number [facility] [address] [place] [phone] * POCT Rapid Influenza B WARREN ID NOW (01/30/2025 4:05 PM EST) [facility] Influenza B Indeterminate Negative, Indeterminate [facility] Swab 01/30/2025 4:05 PM EST Hiral Jett CHILD WELFARE MANAGER POINT OF CARE TEST ENTER/EDIT O RDERABLES Final Result Performing Organization Address [facility] Co de Phone Number [facility] [address] [place] [phone] * POCT Rapid Influenza A WARREN ID NOW (01/30/2025 4:05 PM EST) [facility] Influenza A Indeterminate Negative, Indeterminate [facility] Swab 01/30/2025 4:05 PM EST Hiral Jett CHILD WELFARE MANAGER POINT OF CARE TEST ENTER/EDIT O RDERABLES Final Result Performing Organization Address [facility] Co de Phone Number [facility] [address] [place] [phone] * POCT Rapid Covid-19 BinaxNOW (01/30/2025 3:31 PM EST) [facility] Rapid COVID Ag Negative Swab 01/30/2025 3:31 PM EST Hiral Jett CHILD WELFARE MANAGER POINT OF CARE TEST ENTER/EDIT O RDERABLES Final Result * Chlamydia/N. Gonorrhoeae RNA, TMA, Vaginal (01/25/2025 10:30 AM EST) CT PCR NOT DETECTED Not Detect. [facility] Comment:A not detected test result [...] psychologicalconsequences. NG PCR NOT DETECTED Not Detect. [facility] Comment:A not detected test result [...] AM EST 01/25/2025 2:27 PM EST us Xeina Keene MD LAB MICROBIOLOGY - GENERAL OR DERABLES Final Result [facility] [address] [place] [phone] * Hm Pap Smear (02/19/2020) Pap Negative for intraephithelial lesion or malignancy Negative for intraephithelial lesion or malignancy, Other HPV Not Detected Undetected, Indeterminate, Quantitative, Not Detected us Historical Provider HEALTH MAINTENANCE Final Result from Last 3 Months or Most Recently Relevant to Health Maintenance [facility] [employer] C[employer] Care Teams International Trade Manager Relationship Specialty Start Date End Date Xenia Keene MD [address] [facility] [place] [address] PCP - General Family Medicine 01/02/20 Sully Grant Truck SwitcherCrane Crew Supervisor 06/15/23
--- OUTSIDE RECORDS SUMMARY | 2025-01-30 18:55 | XMS_ITS | Clinical Summary ---
Author Organization [place] [address] [address] [facility] Address [address] [place], [place] [address], [place] [address] Phone Care Team Providers Care Candy Feeder Name Role Phone Xenia Keene MD Primary Care Provider [phone] Allergies Active Allergy Reactions Criticality Noted Date [...] times a week, was using albuterol inhaler. Immunizations Immunization Administration Dates Next Due Influenza Quadravalent, MDCK [...] Sexual Orientation Not on file Obstetrics History * This document contains information received from the source organization and may not represent a complete record from that organization. Para Term AB IAB SAB Ectopic Multiple Livin g Live Births 5 2 2 2 2 Date Outcome GA Total Labor Labor/2nd/3rd Weight Sex Type Anes PTL Aide A1 A5 Name Clin 2017 Term 38w 1d 2827 g (99.7 oz) F Vag-S pont Epidur al Livin g Don key Colette DO Delivery Location:[facility] 0 2020 Term 39w 0d 0h 10m/0h 05m 3657 g (129 oz) M Vag-S pont Epidur al N Livin g 8 9 Miguel Angel CN Delivery Location:[facility] 2022 Last Filed Vital Signs Vital Sign Reading [...] Health Maintenance Due Date Last Done Comments Pneumococcal Vaccine: Pediatrics (0 to 5 Years) and At-Risk Patients (6 to 49 Years) (1 of 2 - PCV) 06/18/2015 Social Influencers of Health Screening 02/22/2022 Cervical Cancer Screening: Pap Smear 02/18/2023 02/19/2020, 02/19/2020, 02/19/2020 Depression Screening 03/21/2024 COVID-19 Vaccine ( season) 2024 Influenza Vaccine (#1) 2024 3, 02/19/2020, 12/16/2017, Additional history exists DTaP,Tdap,and Td Vaccines (10 - Td or Tdap) 06/12/2030 06/12/2020, 04/17/2020, 12/16/2017, Additional history exists RSV Immunization Adult Patients (1 - 1-dose 75+ series) 06/18/2071 IPV Vaccines Completed 09/12/2000, 02/18, 1996, Additional history exists HPV Vaccines Completed 06/14/2008, 01/20, 12/12/2007 Hepatitis A Vaccines Completed 01/09/2013, 04/02/19 11 Meningococcal ACWY Vaccine Completed 11/08/2013, Hepatitis B [...] Name Priority Date/Time Associated Diagnosis Comments HEPATITIS C SCREENING Routine 12/21/2022 HIV SCREENING Routine 12/21/2022 PAP SMEAR Routine 02/19/2020 from Last 3 Months or Most Recently Relevant to Health Maintenance Results * HIV Screening (12/21/2022) HIV Screening abstracted Historical Provider HEALTH MAINTENANCE Final Result * Hepatitis C Screening (12/21/2022) Hepatitis C Screening abstracted Historical Provider HEALTH MAINTENANCE Final Result * Pap smear (02/19/2020) 02/19/2020 Narrative HISTORICAL TESTING LAB RESULTING AGENCY - 02/21/2020 1:11 PM EST [id number] THINPREP PAP, IMAGED: NEGATIVE FOR SQUAMOUS INTRAEPITHELIAL LESION AND MALIGNANCY . JO-ANN CRAIG(ASCP) (CASE ELECTRONICALLY SIGNED 02 21 2020) RESULT OF APTIMA HIGH RISK HPV ASSAY: HIGH RISK HPV: NEGATIVE (SEROTYPES 16,18,31,33,35,39,45,51,52,56,58,59,66,68) COMPLETED ON 2020-02-21 ADEQUACY: SATISFACTORY ENDOCERVICAL/TRANSFORMATION ZONE COMPONENT ABSENT. SOURCE: THINPREP PAP HPV ANY DX: REFLEX 16 AND 18, CERVICAL, IMAGED CLINICAL INFORMATION: HPV ANY DIAGNOSIS. , LMP 10/05/19 [Z12.4, Z34.81] Cecilia CARDOSO LAB CYTOLOGY ORDERABLES Ellyn conteh Result HISTORICAL TESTING LAB RESULTING AGENCY from Last 3 Months or Most Recently Relevant to Health Maintenance Insurance MEDICAID - [place] Care Teams Candy Feeder Relationship Specialty Start Date End Date Xenia Keene MD [address] [place] [phone] PCP - General 01/08/20
--- OUTSIDE RECORDS SUMMARY | 2025-01-30 18:55 | XMS_ITS | Patient Health Record ---
Author Organization [facility] Address [address] [place] [address] Care Team Providers Care Aluminum Fabrication Supervisor Name Role Phone SHEA HENRIQUEZ Unavailable [phone] Allergies Allergen (clinical drug ingredient) Drug/Non Drug Allergy documented on EMR Reaction Allergy Type Onset Date Status Latex Latex Unknown Allergy Active Results Component Value Reference Range Flag Notes Test, Urine Reviewed date:02/13/2024 12:19:42 PM Interpretation:Negative Performing Lab: Notes/Report: Negative Test, Urine neg Lot # [id number] Exp. Date 12/11/[address]/NG, Urine Reviewed date:02/20/2024 12:55:38 PM Interpretation:Negative Performing Lab:[facility], [facility] [place], [address] Toby Hoffman, Notes/Report: GONORRHEA, AMPLIFIED NEGATIVE NEGATIVE N CHLAMYDIA, AMPLIFIED NEGATIVE NEGATIVE N DNA Test Results SEX: F : 1995 AGE: 28 [id number] CLINIC ID: [id number] SS: PHYSICIAN: SHEA HENRIQUEZ CNM COLLECTED BY: [id number] Specimen Source: Urine Specimen Type: Urine, Broderick [...] Aptima/Bw Encounters Encounter Location Date Provider Diagnosis [address] [id number] 02/13/2024 SHEA HENRIQUEZ Encounter for scre ening [...] ATT CLAIMS [address] [place] [address] [id number] Radha Ellison Self - patient is the insured Medical (General) History Medical History History ICD Code Asthma
--- OUTSIDE RECORDS SUMMARY | 2025-01-30 18:55 | XMS_ITS | Clinical Summary ---
Author Organization [facility] Address [address] [place] [address] Care Team Providers Care Profiler Hand Name Role Phone Unavailable Primary Care Provider [...] pcp request 2 Tab 9 Active prenat.vits,alexia ,lbq-wytb-sbwxn ( VITAMIN) per tabletIndicatio ns:Missed period,Pregnanc y [...] DTAP (Infanrix) 09/12/2001, 8,02/28/1997,12/18,1996 HEP B, PED/ADOL (VVIDXJZ-Q-AYON/RECOMBIVAX-PEDS) 01/09/2013,1996,1996 Hep A, Ped/adol, 2 Dose 01/09/2013,04/02/2010 Hep B, Adult/Adol (SFLSWFQ-Z-XPIGW/RECOMBIVAX-ADULT) 04/04/2018,03/02/2018,02/25/2012 Hep B, Unspecified 01/07/2016 Hpv, Unspecified [...] of Treatment Not on file Insurance C3 [facility] ACO Member Subscriber Plan / Payer ( fective 2023-Present) Name:Radha Ellison Relation to Subscriber:Self Name:Radha Ellison Payer ID:[id number] Group ID:Not on file Type:Managed Medicaid Address: [place] [id number] [employer]OPERATIVE ACO Member Subscriber Plan / Payer (Ef fective 2023-Present) Name:Radha Ellison Relation to Subscriber:Self Name:Radha Ellison Payer ID:[id number] Group ID:Not on file Type:Managed Medicaid Address: [place] [id number]
[2025-01-30 19:10] LABS: Hematocrit 37.9 % (37.0-47.0); Hemoglobin 12.2 g/dl (12.0-16.0); Imm Gran Abs Auto 0.01 X10*3/uL (0.00-0.03); Imm Gran Pct Auto 0.2 % (0.0-0.4); Lymphocytes Absolute Auto 1.5 X10*3/uL (1.2-4.9); Mean Corpuscular HGB Conc 32.2 g/dl (31.0-35.0); Mean Corpuscular Hemoglobin 27.7 pg (27.0-33.0); Mean Corpuscular Volume 85.9 fL (80.0-98.0); NRBC Abs Auto 0.000 X10*3/uL (0.0-0.012); NRBC Pct Auto 0.0 /100WBC (0.0-0.2); Platelet Count 269 X10*3/uL (160-400); Red Blood Count 4.41 X10*6/uL (4.20-5.50); White Blood Count 5.7 X10*3/uL (4.8-10.8)
[2025-01-31 04:26] LABS: HIV Num 1 0.07 S/CO (0.00-0.99); ~HepC Num1 0.13 S/CO (0.00-0.79); ~Hepatitis C Antibody Nonreactive (Nonreactive)
== END 2025-01-30 16:03 | disposition home or self-care (01) ==
LOC: HO.HHCL 16:02
PROVIDERS: PCP Pediatrics; Visit Provider Pediatrics
DX: Z00.00 Encounter for general adult medical examination without abnormal findings (principal); J45.30 Mild persistent asthma, uncomplicated; L80 Vitiligo; Z23 Encounter for immunization; Z71.3 Dietary counseling and surveillance; Z71.82 Exercise counseling; Z11.59 Encounter for screening for other viral diseases; Z11.4 Encounter for screening for human immunodeficiency virus [HIV]
CPT/HCPCS: 36415; 80048; 80076; 82306; 82607; 82746; 84443; 85025; 86803; 87389

== ENCOUNTER → 2025-01-31 09:00 | Outpatient (BNV) | payer MEDICAID, SELFPAY | PROVIDERS: PCP Pediatrics; Visit Provider Internal Medicine | DX: N64.4 Mastodynia (principal) | CPT/HCPCS: 76642 ==

== ENCOUNTER 2025-01-31 09:01 | Outpatient (REF) | payer MEDICAID, SELFPAY ==
--- OUTSIDE RECORDS SUMMARY | 2025-01-30 15:00 | XMS_ITS | Encounter Summary ---
Demographics Address [address] [place] [address] Work Phone Home Phone Mobile Phone Email Address Preferred Language en Marital Status Single Mosque Affiliation Unknown Race Other Race Ethnic Group Unknown Author Organization [employer] Address [address] [place] [address] Care Team Providers Care Geological Technical Officer Name Role Phone Xenia Keene MD Primary Care Provider [phone] Encounter Details Date Type Department Care Team (Late st Contact Info) Description 01/30/2025 3:00 PM EST Office Visit [facility] [address] [place], [place] [phone] Hiral Jett NP [address] [place] [address] Acute cough; Shortness of breath Social History Tobacco Use Types Packs/Day Years [...] Sign Reading Time Taken Comments Blood Pressure 121/85 01/30/2025 2:58 PM EST Pulse 73 01/30/2025 2:58 PM EST Temperature 36.2 C (97.2 F) 01/30/2025 2:58 PM EST Respiratory Rate 17 01/30/2025 2:58 PM EST Oxygen Saturation 100% 01/30/2025 2:58 PM EST room air Inhaled Oxygen Concentration - - Weight 78.2 kg (172 lb 6.4 oz) 01/30/2025 2:58 P M EST Height - - Body Mass Index 29.59 01/25/2025 10:12 AM EST documented in this encounter Progress Notes * Hiral Jett NP - 01/30/2025 3:00 PM EST SUBJECTIVE Radha Ellison is a 29 y.o. female who presents for No chief complaint on file.. HPI Radha Ellison, 29-year-old female - Shallow breathing and chest tightness since Monday, January 27, 2025 - Denies wheezing, cough, fever, chest pain, sore throat - Asthma history; No maintenance therapy; last flare in spring 2024 - Used nebulizer and albuterol inhaler for current symptoms with no relief. - Received flu shot on Saturday, January 25, 2025, during physical exam Review of Systems Constitutional: Negative. Negative for chills and fever. Respiratory: Positive for chest tightness. Negative for cough and shortness of breath. Cardiovascular: Negative for chest pain. Gastrointestinal: Negative for abdominal pain, constipation, diarrhea and nausea. Genitourinary: Negative for dysuria. Musculoskeletal: Negative for arthralgias, back pain, myalgias and neck pain. Skin: Negative. Negative for rash and wound. Neurological: Negative for weakness, light-headedness and headaches. Psychiatric/Behavioral: Negative for behavioral problems, confusion, decreased concentration and suicidal ideas. Allergies[1] OBJECTIVE Vitals: 01/30/25 1458 BP: 121/85 BP Location: Left arm Patient Position: Sitting BP Cuff Size: Adult Pulse: 73 Resp: 17 Temp: 97.2 ??F (36.2 ??C) TempSrc: Oral SpO2: 100% Weight: 172 lb 6.4 oz (78.2 kg) Office Visit on 01/30/2025 Component Date Value Ref Range Status Influenza B 01/30/2025 Indeterminate Negative, Indeterminate Final Influenza A 01/30/2025 Indeterminate Negative, Indeterminate Final Rapid COVID Ag 01/30/2025 Negative Final Physical Exam Vitals reviewed. Constitutional: General: She is not in acute distress. Appearance: Normal appearance. She is not ill-appearing. HENT: Head: Normocephalic and atraumatic. Right Ear: Tympanic membrane and external ear normal. Left Ear: Tympanic membrane and external ear normal. Nose: Nose normal. Eyes: General: No scleral icterus. Extraocular Movements: Extraocular movements intact. Cardiovascular: Rate and Rhythm: Normal rate and regular rhythm. Pulses: Normal pulses. Heart sounds: Normal heart sounds. Pulmonary: Effort: Pulmonary effort is normal. No respiratory distress. Breath sounds: Normal breath sounds. Musculoskeletal: General: Normal range of motion. Cervical back: Normal range of motion and neck supple. Lymphadenopathy: Cervical: No cervical adenopathy. Skin: General: Skin is warm and dry. Neurological: General: No focal deficit present. Mental Status: She is alert and oriented to person, place, and time. Gait: Gait normal. Psychiatric: Mood and Affect: Mood normal. Behavior: Behavior normal. Assessment/Plan Dyspnea: - Chest tightness and shallow breathing not improved with albuterol and nebulizer. No wheezing on auscultation. - POCT rapid COVID test negative; rapid flu indeterminate x2. - Patient is speaking in complete sentences, appears to be well, and vital signs are normal. - Recommendation for inhaled corticosteroid - Prescribed Symbicort inhaler, two puffs every four hours as needed for chest tightness, not to exceed twelve puffs in 24 hours. Advised to rinse mouth after use to prevent oral thrush. - Advised to return for further evaluation if no improvement in one week or if symptoms worsen. - Risks and side effects: Discussed risk of oral thrush (Blanca) with inhaled steroid use. Assessment & Plan Acute cough Orders: POCT Rapid Influenza B WARREN ID NOW POCT Rapid Influenza A WARREN ID NOW POCT Rapid Covid-19 BinaxNOW Shortness of breath Orders: POCT Rapid Influenza B WARREN ID NOW POCT Rapid Influenza A WARREN ID NOW POCT Rapid Covid-19 BinaxNOW budesonide-formoterol (Symbicort) 160-4.5 MCG/ACT inhaler; Inhale 2 puffs every 4 (four) hours if needed (chest tightness). Rinse mouth with water after use to reduce aftertaste and incidence of candidiasis. Do not swallow. Follow-up with PCP as scheduled for routine health or sooner as needed This note was drafted using Ambient (Luristic) technology. The patient/patient's guardian has been informed and has consented to the use of this technology: Yes No future appointments. [1] Allergies Allergen Reactions Latex Hives, Itching, Rash, Swelling and Shortness of breath Trouble breathing documented in this encounter Plan of Treatment Not on file documented as of this encounter Procedures Procedure Name Priority Date/Time Associated Diagnosis Comments POCT INFLUENZA B (ID NOW RAPID MOLECULAR) Routine 01/30/2025 4:05 PM EST Acute cough Shortness of breath POCT INFLUENZA A (ID NOW RAPID MOLECULAR) Routine 01/30/2025 4:05 PM EST Acute cough Shortness of breath POCT RAPID COVID ANTIGEN Routine 01/30/2025 3:31 PM EST Acute cough Shortness of breath documented in this encounter Results * POCT Rapid Influenza A WARREN ID NOW (01/30/2025 4:05 PM EST) Influenza A Indeterminate Negative, Indeterminate [facility] Swab 01/30/2025 4:05 PM EST us Hiral Dyerm CIRCULATION TENDER POINT OF CARE TEST ENTER/EDIT O RDERABLES Final Result Performing Organization Address City/[facility]/ZIP Co de Phone Number [facility] [address] [place] [address] [phone] * POCT Rapid Influenza B WARREN ID NOW (01/30/2025 4:05 PM EST) Influenza B Indeterminate Negative, Indeterminate [facility] Swab 01/30/2025 4:05 PM EST us Hiral Dyerm CIRCULATION TENDER POINT OF CARE TEST ENTER/EDIT O RDERABLES Final Result Performing Organization Address City/[facility]/ZIP Co de Phone Number [facility] [address] [place] [address] [phone] * POCT Rapid Covid-19 BinaxNOW (01/30/2025 3:31 PM EST) Rapid COVID Ag Negative Swab 01/30/2025 3:31 PM EST us Hiral Dyerm CIRCULATION TENDER POINT OF CARE TEST ENTER/EDIT O RDERABLES Final Result documented in this encounter Visit Diagnoses Diagnosis Acute cough Shortness of breath documented in this encounter Additional Health Concerns Assessment Noted Time PHQ-9 Depression Total Score: 11 025 10:15 AM EST documented as of this encounter Care Teams Geological Technical Officer Relationship Specialty Start Date End Date Xenia Keene MD [address] [place] [phone] PCP - General Family Medicine 01/02/20 Sully Grant Armored Car Guard And DriverSilk Snapper 06/15/23 documented as of this encounter
--- NOTE | ~2025-01-31 | US_ITS ---
EXAMINATION: US DIAGNOSTIC ULTRASOUND BREAST, RIGHT CLINICAL INFORMATION: 29-year-old female right breast pain superior for one month. No injury no change in medications.. COMPARISON: No prior imaging available for comparison. TECHNIQUE: Ultrasound of the breast is performed with real-time yang scale imaging and color Doppler. FINDINGS: Targeted color Doppler ultrasound scanning from 10-2 o'clock in the superior right breast area of patient's pain demonstrates normal fibroglandular breast tissue. There is no sonographic abnormal finding. Results are discussed with the patient at time of visit. US/US Breast RT Limited Mamm Only IMPRESSION: No sonographic abnormal finding to account for the patient's right breast pain. Recommend clinical evaluation and follow-up. ASSESSMENT: BI-RADS 1: Negative RECOMMENDATION: Recommend clinical evaluation follow-up. Electronically signed by: Sho Mason DO 01/31/2025 09:32 AM EST
--- OUTSIDE RECORDS SUMMARY | 2025-01-31 09:47 | XMS_ITS | Clinical Summary ---
Author Organization [facility] Address [address] [place] [address] Care Team Providers Care Medical Office Technician Name Role Phone Unavailable Primary Care Provider [...] pcp request 2 Tab 9 Active prenat.vits,alexia ,nlw-pgca-eetmy ( VITAMIN) per tabletIndicatio ns:Missed period,Pregnanc y [...] DTAP (Infanrix) 09/12/2001, 8,02/28/1997,12/18,1996 HEP B, PED/ADOL (ZMANJDA-O-UDLJ/RECOMBIVAX-PEDS) 01/09/2013,1996,1996 Hep A, Ped/adol, 2 Dose 01/09/2013,04/02/2010 Hep B, Adult/Adol (LABODIV-A-RTXUC/RECOMBIVAX-ADULT) 04/04/2018,03/02/2018,02/25/2012 Hep B, Unspecified 01/07/2016 Hpv, Unspecified [...] of Treatment Not on file Insurance C3 [facility] ACO Member Subscriber Plan / Payer ( fective 2023-Present) Name:Radha Ellison Relation to Subscriber:Self Name:Radha Ellison Payer ID:[id number] Group ID:Not on file Type:Managed Medicaid Address: [place] [id number] [employer] Member Subscriber Plan / Payer (Ef fective 2023-Present) Name:Radha Ellison Relation to Subscriber:Self Name:Radha Ellison Payer ID:[id number] Group ID:Not on file Type:Managed Medicaid Address: [place] [id number]
--- OUTSIDE RECORDS SUMMARY | 2025-01-31 09:47 | XMS_ITS | Patient Health Record ---
Author Organization [facility] Address [address] [place] [address] Care Team Providers Care Assistant Manager Quality Management Name Role Phone SHEA HENRIQUEZ Unavailable [phone] Allergies Allergen (clinical drug ingredient) Drug/Non Drug Allergy documented on EMR Reaction Allergy Type Onset Date Status Latex Latex Unknown Allergy Active Results Component Value Reference Range Flag Notes APTIMA COMBO 2 CT/NG, Urine Reviewed date:02/20/2024 12:55:38 PM Interpretation:Negative Performing Lab:[facility], [facility], [place], [address] Toby Hoffman DO Notes/Report: GONORRHEA, AMPLIFIED NEGATIVE NEGATIVE N CHLAMYDIA, AMPLIFIED NEGATIVE NEGATIVE N DNA Test Results SEX: F : 1995 AGE: 28 [id number] CLINIC ID: [id number] SS: PHYSICIAN: SHEA HENRIQUEZ [facility] COLLECTED BY: [id number] Specimen Source: Urine Specimen Type: Urine, Broderick PCR Medium Neisseria gonorrhoeae: NEGATIVE Normal Value: Negative Chlamydia trachomatis: NEGATIVE Normal Value: Negative Test, Urine Reviewed date:02/13/2024 12:19:42 PM Interpretation:Negative Performing Lab: Notes/Report: Negative Test, Urine neg Lot # [id number] Exp. Date 12/11/2024 Reason For Referral No [...] Aptima/Bw Encounters Encounter Location Date Provider Diagnosis [address] [id number] 02/13/2024 SHEA HENRIQUEZ Encounter for scre ening [...] ATT CLAIMS [address] [place] [address] [id number] Radha Ellison Self - patient is the insured Medical (General) History Medical History History ICD Code Asthma
--- OUTSIDE RECORDS SUMMARY | 2025-01-31 09:47 | XMS_ITS | Encounter Summary ---
Demographics Address [address] [place] [address] Work Phone Home Phone Mobile Phone Email Address Preferred Language en Marital Status Single Islam Affiliation Unknown Race Other Race Ethnic Group Unknown Author Organization [employer] Address [address] [place] [address] Care Team Providers Care Wiping Cloth Cutter Name Role Phone Xenia Keene MD Primary Care Provider [phone] Encounter Details Date Type Department Care Team [...] documented as of this encounter Care Teams Wiping Cloth Cutter Relationship Specialty Start Date End Date Xenia Keene MD [address] [place] [phone] PCP - General Family Medicine 01/02/20 Sully Grant Control Officer ManagerPhysical Scientist 06/15/23 documented as of this encounter
--- OUTSIDE RECORDS SUMMARY | 2025-01-31 09:47 | XMS_ITS | Encounter Summary ---
Demographics Address [address] [place] [address] Work Phone Home Phone Mobile Phone Email Address Preferred Language en Marital Status Single Sabianism Affiliation Unknown Race Other Race Ethnic Group Unknown Author Organization [employer] Address [address] [facility] [address] [place] [address] Care Team Providers Care Senior Field Service Engineer Name Role Phone Xenia Keene MD Primary Care Provider [phone] Encounter Details Date Type Department Care Team (Late st Contact Info) Description 09/07/2022 Abstract [facility] [employer] Information Management [address] [place], [place] [phone] Xenia Keene MD [address] [place] [address] Social History Tobacco Use Types Packs/Day Years [...] documented as of this encounter Care Teams Senior Field Service Engineer Relationship Specialty Start Date End Date Xenia Keene MD [address] [place] [address] PCP - General Family Medicine 01/02/20 Sully Grant Reversal Print InspectorManager Talent Management 06/15/23 documented as of this encounter
--- OUTSIDE RECORDS SUMMARY | 2025-01-31 09:47 | XMS_ITS | Clinical Summary ---
Author Organization [employer] Address [address] [facility] [address] [place] [address] Care Team Providers Care Dialysis Nurse Name Role Phone Xenia Keene MD Primary Care Provider [phone] Allergies Active Allergy Reactions Criticality Noted Date Comments Latex Hives,Itching,Rash,S welling ,Shortness of breath High 12/27/2017 Trouble breathing Medications Multiple Vitamins-Montour als (Multivitamin Gummies Womens) chewable tablet Take [...] 24 Active ergocalciferol (Vitamin D2) 1.25 MG (52570 UT) capsule TAKE 1 TABSULE BY MOUTH [...] Description 01/30/2025 3:00 PM EST Office Visit [facility] [address] [place] [phone] Hiral Jett NP Acute cough; Shortness of breath 01/30/2025 Telephone [facility] [address] [place] [phone] Xenia Keene MD In person triage 01/30/2025 Travel 01/25/2025 10:00 AM EST Office Visit [facility] [address] [place] [address] Xenia Keene MD Vitiligo (Primary Dx); Encounter for immunization; Dietary counseling; Exercise counseling; Uncontrolled mild persistent asthma; Routine general medical examination at a health care facility; Pain of right breast 01/25/2025 Travel 01/22/2025 Telephone [facility] [address] [place] [address] Xenia Keene MD Chart Prep 12/11/2024 Refill [facility] [address] [place] [address] Xenia Keene MD 11/30/2024 9:20 AM EDT Office Visit [facility] [address] [place] [phone] Name, MD Yfn Right ear pain (Primary [...] Disability Screening 1996 Family Planning (PISQ) 06/18/2011 Pneumococcal Vaccine: Pediatrics (0 to 5 Years) and At-Risk Patients (6 to 49) Years (1 of 2 - PCV) 06/18/2015 COVID-19 Vaccine ( - season) 2024 12/19/2020, 11/26/2020 Pap Smear [...] Completed 04/04/2018, 03/02/2018, 01/07/2016, Additional history exists Influenza Vaccine Completed 01/25/2025, , 11/25/2022, Additional history exists HIV Screening Completed 01/30/2025, 12/21/2022 Hepatitis C Screening Completed 01/30/2025 HIB Vaccines Aged Out No longer eligi [...] Procedure Name Priority Date/Time Associated Diagnosis Comments CBC WITH AUTO DIFFERENTIAL Routine 01/30/2025 4:06 PM EST Encounter for immunization Dietary counseling Exercise counseling Uncontrolled mild persistent asthma Vitiligo Routine general medical examination at a health care facility BASIC METABOLIC PANEL Routine 01/30/2025 4:06 PM EST Encounter for immunization Dietary counseling Exercise counseling Uncontrolled mild persistent asthma Vitiligo Routine general medical examination at a health care facility HEPATITIS C AB W/REFL TO HCV RNA, QN, PCR Routine 01/30/2025 4:06 PM EST Encounter for immunization Dietary counseling Exercise counseling Uncontrolled mild persistent asthma Vitiligo Routine general medical examination at a health care facility HIV 1/2 ANTIGEN/ANTIBODY, FOURTH GENERATION W/RFL Routine 01/30/2025 4:06 PM EST Encounter for [...] examination at a health care facility VITAMIN B12/FOLATE, SERUM PANEL Routine 01/30/2025 4:06 PM EST Encounter [...] Vitamin D 25-OH Total 11.1(L) >30 ng/mL [facility] Comment: Health Based Reference Values*< 20 ng/mL [id number] ng/mL Insufficient> 30 ng/mL Sufficient*Raul SCHERER. N [...] ORDERABLES Final Re sult Performing Organization Address [facility]/ZIP Co de Phone Number [facility] [address] [place] [phone] * Vitamin B12/Folate, Serum Panel (01/30/2025 4:06 PM EST) Vitamin B12 527 200 - 900 pg/mL [facility] Comment:NORMAL 200-900 PG/ML INDETERMINATE 160-199 PG/ML DEFICIENT < 160 PG/ML Folate 9.5 > or = 4.0 ng/mL [facility] Comment:Reference Values:> o r = 4.0 ng/mL< 4.0 ng/mL suggests folate deficiency Methotrexate, aminopterin and folinic acid(leucovorin) are chemotherapeutic agents whose molecularstructures are similar to folate; therefore, the Architectfolate assay cannot be used for patients using these drugs. Blood Venous blood specimen / Unknown 01/30/2025 4:06 PM EST 01/30/2025 5:55 PM EST us Xenia Keene MD LAB BLOOD ORDERABLES Final Re sult Performing Organization Address [facility] Co de Phone Number [facility] [address] [place] [phone] * TSH W/Reflex to FT4 (01/30/2025 4:06 PM EST) TSH reflex Free T4 1.22 0.32 - 4.0 uIU/mL [facility] Blood Venous blood specimen / Unknown 01/30/2025 4:06 PM EST 01/30/2025 5:55 PM EST Xenia Keene MD LAB BLOOD ORDERABLES Final Re sult Performing Organization Address [facility] Co de Phone Number [facility] [address] [place] [phone] * (ABNORMAL) CBC auto differential (01/30/2025 4:06 PM EST) White Blood Count 5.7 4.8 - 10.8 X10*3/uL [facility] Red Blood Count 4.41 4.20 - 5.50 X10*6/uL [facility] Hemoglobin 12.2 12.0 - 16.0 g/dl [facility] Hematocrit 37.9 37.0 - 47.0 % [facility] Mean Corpuscular Volume 85.9 80.0 - 98.0 fL [facility] Mean Corpuscular Hemoglobin 27.7 27.0 - 33.0 pg [facility] Mean Corpuscular HGB Conc 32.2 31.0 - 35.0 g/dl [facility] Red Cell Distribution Width 12.0 11.0 - 16.0 % [facility] Platelet Count 269 160 - 400 X10*3/uL [facility] Mean Platelet Volume 10.1 9.4 - 12.3 fL [facility] Neutrophils Percent Auto 51.6 45 - 73 % [facility] Imm Gran Pct Auto 0.2 0.0 - 0.4 % [facility] Lymphocytes Percent Auto 26.3 20 - 40 % [facility] Monocytes Percent Auto 10.5 2 - 11 % [facility] Eosinophils Percent Auto 10.9(H) 0 - 4 % [facility] Basophils Percent Auto 0.5 0 - 2 % [facility] NRBC Pct Auto 0.0 0.0 - 0.2 /100WBC [facility] Neutrophils Absolute Auto 3.0 2.0 - 8.3 x10*3/uL [facility] Imm Gran Abs Auto 0.01 0.00 - 0.03 X10*3/uL [facility] Lymphocytes Absolute Auto 1.5 1.2 - 4.9 X10*3/uL [facility] Monocytes Absolute Auto 0.6 0.1 - 1.2 X10*3/uL [facility] Eosinophils Absolute Auto 0.6(H) 0.0 - 0.4 X10*3/uL [facility] Basophils Absolute Auto 0.0 0.0 - 0.2 X10*3/uL [facility] NRBC Abs Auto 0.000 0.0 - 0.012 X10*3/uL [facility] Blood Venous blood specimen / Unknown 01/30/2025 4:06 PM EST 01/30/2025 5:55 PM EST Xenia Keene MD LAB BLOOD ORDERABLES Final Re sult Performing Organization Address [facility] Co de Phone Number [facility] [address] [place] [phone] * Hepatitis C Antibody with Reflex to HCV, RNA, Quantitative, Real-Time PCR (01/30/2025 4:06 PM EST) Pathologist [facility] Hepatitis C Antibody Nonreactive Nonreactive [facility] Comment:Antibodies to HCV no t detected; does not exclude early acuteHCV infection. Blood Venous blood specimen / Unknown 01/30/2025 4:06 PM EST 01/30/2025 5:55 PM EST Xenia Keene MD LAB BLOOD ORDERABLES Final Re sult Performing Organization Address [facility] de Phone Number [facility] [address] [place] [phone] * HIV-1/2 Antigen and Antibodies, Fourth Generation, with Reflexes (01/30/2025 4:06 PM EST) Pathologist [facility] HIV AB/AG Nonreactive Nonreactive [facility] Comment:HIV-1 p24 Ag and/or HIV-1/HIV-2 Ab not detected.A test result that is nonreactive does not exclude thepossibility of exposure to or infection with HIV-1 and/orHIV-2. Nonreactive results in this assay for individualswith prior exposure to HIV-1 and/or HIV-2 may be due toantigen and antibody levels that are below the limit ofdetection of this assay.The Xooker HIV Ag/Ab Combo assay result andsupplemental assay results should be interpreted inconjunction with the patient's clinical presentation,history and other laboratory results. If the results areinconsistent with clinical evidence, additional testing issuggested to confirm the result. Blood Venous blood specimen / Unknown 01/30/2025 4:06 PM EST 01/30/2025 5:55 PM EST Xenia Keene MD LAB BLOOD ORDERABLES Final Re sult Performing Organization Address City/[facility]/ZIP Co de Phone Number [facility] [address] [place] [address] [phone] * Hepatic Function Panel (01/30/2025 4:06 PM EST) Bilirubin, Total 0.2 0.0 - 1.0 mg/dL [facility] Bilirubin, Direct <0.2 0.0 - 0.5 mg/dL [facility] Aspartate Amino Transferase 29 5 - 31 U/L [facility] Alanine Aminotransferase 14 0 - 31 U/L [facility] Total Protein 6.9 6.5 - 8.0 g/dL [facility] Albumin Level 4.4 3.5 - 5.0 g/dL [facility] Alkaline Phosphatase 57 39 - 117 U/L [facility] Blood Venous blood specimen / Unknown 01/30/2025 4:06 PM EST 01/30/2025 5:55 PM EST Xenia Keene MD LAB BLOOD ORDERABLES Final Re sult Performing Organization Address [facility]/ZIP Co de Phone Number [facility] [address] [place] [phone] * (ABNORMAL) Basic Metabolic Panel (01/30/2025 4:06 PM EST) Sodium 142 135 - 145 mmol/L [facility] Potassium 3.9 3.3 - 5.1 mmol/L [facility] Chloride 110(H) 96 - 108 mmol/L [facility] Carbon Dioxide 24 22 - 29 mmol/L [facility] Anion Gap 12 12 - 20 [facility] Urea Nitrogen (BUN) 10 9 - 16 mg/dL [facility] Creatinine, Serum 0.77 0.5 - 1.4 mg/dL [facility] Estimated Glomerular Filt Rate >60 [facility] Comment:Chronic Kidney Disea se: Estimated GFR < 60 mL/min/[id number] Kidney Disease: Estimated GFR < 15 mL/min/1.73m2 Glucose 93 60 - 115 mg/dL [facility] Calcium 8.9 8.4 - 10.2 mg/dL [facility] Blood Venous blood specimen / Unknown 01/30/2025 4:06 PM EST 01/30/2025 5:55 PM EST us Xenia Keene MD LAB BLOOD ORDERABLES Final Re sult Performing Organization Address [facility]/ZIP Co de Phone Number [facility] [address] [place] [phone] * POCT Rapid Influenza B WARREN ID NOW (01/30/2025 4:05 PM EST) Pathologist [facility] Influenza B Indeterminate Negative, Indeterminate [facility] Swab 01/30/2025 4:05 PM EST us Hiral Jett [employer] TE[employer]ER POINT OF CARE TEST ENTER/EDIT O RDERABLES Final Result Performing Organization Address [facility] Co de Phone Number [facility] [address] [place] [phone] * POCT Rapid Influenza A WARREN ID NOW (01/30/2025 4:05 PM EST) Influenza A Indeterminate Negative, Indeterminate [facility] Swab 01/30/2025 4:05 PM EST us Hiral Jett INDUSTRI[employer]CONOM[employer] TEACHER POINT OF CARE TEST ENTER/EDIT O RDERABLES Final Result Performing Organization Address [facility] Co de Phone Number [facility] [address] [place] [address] [phone] * POCT Rapid Covid-19 BinaxNOW (01/30/2025 3:31 PM EST) Rapid COVID Ag Negative Swab 01/30/2025 3:31 PM EST [facility] [employer] TEACHER POINT OF CARE TEST ENTER/EDIT O RDERABLES Final Result * Chlamydia/N. Gonorrhoeae RNA, TMA, Vaginal (01/25/2025 10:30 AM EST) Pathologist [facility] CT PCR NOT DETECTED Not Detect. [facility] Comment:A not detected test result does [...] psychologicalconsequences. NG PCR NOT DETECTED Not Detect. [facility] Comment:A not detected test result does [...] 10:30 AM EST 01/25/2025 2:27 PM EST Xenia Keene MD LAB MICROBIOLOGY - GENERAL OR DERABLES Final Result [facility] [address] [place] [address] [phone] * Pap Smear (02/19/2020) Pap Negative for intraephithelial lesion or malignancy Negative for intraephithelial lesion or malignancy, Other HPV Not Detected Undetected, Indeterminate, Quantitative, Not Detected Historical Provider HEALTH MAINTENANCE Final Result from Last 3 Months or Most Recently Relevant to Health Maintenance Insurance [employer] C3 * Guarantor: Radha Ellison Account Type Relation to Patient Date of Phone Billing Address Personal/Family Self [address] [place] [address] Care Teams Dialysis Nurse Relationship Specialty Start Date End Date Xenia Keene MD [address] [facility] [place] [address] PCP - General Family Medicine 01/02/20 Sully [employer] Fire[employer]/FiremanBinding End Stitcher 06/15/23
--- OUTSIDE RECORDS SUMMARY | 2025-01-31 09:47 | XMS_ITS | Clinical Summary ---
Author Organization [place] [address] [facility] Building Address [address] [place], [place] [address] [address] Phone Care Team Providers Care Resident Service Coordinator Name Role Phone Xenia Keene MD Primary Care Provider [phone] Allergies Active Allergy Reactions Criticality Noted Date [...] Livin g Don key Colette DO Delivery Location:[facility] 0 2020 Term 39w 0d 0h 10m/0h 05m 3657 g (129 oz) M Vag-S pont Epidur al N Livin g 8 9 Miguel Angel CN Delivery Location:[facility] 2022 Last Filed Vital Signs Vital Sign [...] RESULTING AGENCY - 02/21/2020 1:11 PM EST [id number] THINPREP PAP, IMAGED: NEGATIVE FOR SQUAMOUS INTRAEPITHELIAL [...] Maintenance Insurance MEDICAID - [place] Care Teams Resident Service Coordinator Relationship Specialty Start Date End Date Xenia Keene MD [address] [place] [phone] PCP - General 01/08/20
--- OUTSIDE RECORDS SUMMARY | 2025-01-31 09:47 | XMS_ITS | Encounter Summary ---
Demographics Address [address] [place] [address] Work Phone Home Phone Mobile Phone Email Address Preferred Language en Marital Status Single Mormonism Affiliation Unknown Race Other Race Ethnic Group Unknown Author Organization [employer] Address [address] [facility] [address] [place] [address] Care Team Providers Care Sample Tester Grinder Name Role Phone Xenia Keene MD Primary Care Provider [phone] Reason for Visit * Reason Onset Date Comments In person triage 01/30/2025 Encounter Details Date Type Department Care Team (Late st Contact Info) Description 01/30/2025 Telephone [facility] [address] [place] [address] Xenia Keene MD [address] [place] [address] In person triage Social History Tobacco Use [...] documented as of this encounter Care Teams Sample Tester Grinder Relationship Specialty Start Date End Date Xenia Keene MD [address] [place] [phone] PCP - General Family Medicine 01/02/20 [employer]ully [employer] TeacherStore Receiving Specialist 06/15/23 documented as of this encounter
== END 2025-01-31 09:02 | disposition home or self-care (01) ==
LOC: HO.MAMMO 09:01
PROVIDERS: PCP Pediatrics; Visit Provider Pediatrics
DX: N64.4 Mastodynia (principal)
CPT/HCPCS: 76642